=== PATIENT | male | born 1955 | race Caucasian/White ===

== ENCOUNTER 2021-02-08 11:32 | Inpatient (IN) | payer OTHER ==
[~2021-02-08] VITALS: Ht 175.3 cm; Wt 56.7 kg
[2021-02-08 11:33] VITALS: BP 105/76
[2021-02-08 12:01] LABS: ABSOLUTE NEUTROPHILS 7.6 thou/uL (1.4-8.2); BASOPHILS 0.2 % (0.0-2.0); EOSINOPHILS 0.1 % (0.0-3.0); HEMATOCRIT 52.2 % (42.0-52.0); HEMOGLOBIN 16.7 gm/dL (14.0-18.0); LYMPHOCYTES 5.8 % (24.0-44.0); MCV 93.8 fL (80.0-100.0); MONOCYTES 4.3 % (1.0-8.0); PLATELET COUNT 122 thou/uL (150-400); POLYS 89.6 % (36.0-66.0); RBC 5.56 mil/uL (4.50-6.00); RDW 17.2 % (10.5-14.5); WBC 8.4 thou/uL (4.0-11.0)
[2021-02-08 12:13] LABS: ANION GAP 2 mmol/L (7-16); BUN 32 mg/dL (7-18); CALCIUM 8.7 mg/dL (8.5-10.1); CHLORIDE 104 mmol/L (98-107); CO2 36 mmol/L (21-32); CREATININE 1.3 mg/dL (0.7-1.3); GLUCOSE 128 mg/dL (74-106); POTASSIUM 5.7 mmol/L (3.5-5.1); SODIUM 142 mmol/L (136-145)
[2021-02-08 12:23] LABS: ALBUMIN 2.7 g/dL (3.4-5.0); SGOT 30 U/L (15-37); SGPT 36 U/L (16-63); TOTAL BILIRUBIN 0.5 mg/dL (0.2-1.0); TROPONIN-I <0.06 ng/mL (<0.06)
--- NOTE | 2021-02-08 13:00 | NUR ---
Pt yelling at staff and refusing to ambulate with r/w in room pt stood without assistance and did give urine sample pt reports he is to swollen. Provider in room and talking with pt.
[2021-02-08 13:09] LABS: URINE BILIRUBIN NEGATIVE (Negative); URINE BLOOD NEGATIVE (Negative); URINE CLARITY CLEAR; URINE COLOR YELLOW; URINE GLUCOSE-RANDOM* NEGATIVE (Negative); URINE KETONES NEGATIVE (Negative); URINE LEUKOCYTES-REFLEX NEGATIVE (Negative); URINE NITRITE-REFLEX NEGATIVE (Negative); URINE PROTEIN (DIPSTICK) 2+ (Negative); URINE SPECIFIC GRAVITY 1.025 (1.005-1.035); URINE UROBILINOGEN 0.2 E.U./dl (0.2-1.0)
[2021-02-08 13:31] LABS: HYALINE CASTS >10 Many /LPF (None Seen)
[2021-02-08 13:32] LABS: SQUAMOUS 0-3 Few /LPF (0-3)
[2021-02-08 13:34] LABS: BACTERIA-REFLEX 1-9 Few /HPF (None Seen); CRYSTALS None Seen /LPF (None Seen); URINE RBC None Seen /HPF (0-2); URINE WBC-REFLEX 0-5 Rare /HPF (0-5)
[2021-02-08] MEDS ORDERED: ASA81BEC PO (14:30)
[2021-02-08] MEDS ORDERED: PROAIR HFA8.5 GM INH (14:30)
[2021-02-08] MEDS ORDERED: LIPITOR40 MG PO (14:31)
[2021-02-08] MEDS ORDERED: DILTIAZEM ER120 MG PO (14:31)
[2021-02-08] MEDS ORDERED: VIBRAMYCIN 100100 M2 PO (14:31)
[2021-02-08] MEDS ORDERED: FUROSEMIDE 40 M40 MG PO (14:32)
[2021-02-08] MEDS ORDERED: PREDNISONE 10 M10 MG PO (14:32)
[2021-02-08 15:07] VITALS: BP 91/62
--- NOTE | 2021-02-08 15:14 | EKG ---
[address] [place] [address] ELECTROCARDIOGRAM REPORT Name: COLIN HYDE Room #: 170-7 ADM IN M.R.#: [id number] Admission: 02/08/21 Attend Phys: Camacho Cm MD Discharge: Date of : 53 Report #: [id number] [facility] ED Test Date: 2021-02-08 Test Time: 11:57:14 Pat Name: COLIN HYDE Department: Room: 170 Gender: M Oak Tanner: KFLAGG : 1955 Requested By: Adrian Pagan Order Number: [id number] MD: Quincy Fontana Measurements Intervals [place] Rate: 102 P: 88 GA: 128 QRS: 164 QRSD: 143 T: 41 QT: 350 QTc: 456 Interpretive Statements Sinus tachycardia Right bundle branch block Abnormal lateral Q waves Anterior infarct, age indeterminate No previous ECG available for comparison Electronically Signed On 02-08-2021 15:14:10 CDT by Quincy Fontana [email or web address] <ELECTRONICALLY SIGNED> By: Quincy Fontana MD, [facility] 02/08/21 1514 1157 1157 Quincy Fontana MD, FACC /EPI
[2021-02-08 15:20] VITALS: BP 88/66
[2021-02-08 15:26] LABS: CHOLESTEROL 131 mg/dL (<200); HDL CHOLESTEROL 54 mg/dL (>40); LDL CHOLESTEROL 57 mg/dL (<100); TC:HDL 2.4 Ratio (Not establshd); TRIGLYCERIDE 102 mg/dL (<150); VLDL 20 mg/dL (<40)
[2021-02-08 15:52] LABS: FOLIC ACID 19.3 ng/mL (8.6-58.9)
[2021-02-08 16:17] LABS: AMP/METHAMP Negative (Negative); BARBITURATES Negative (Negative); BENZODIAZEPINES Negative (Negative); COCAINE Negative (Negative); METHADONE Negative (Negative); OPIATES Negative (Negative); PCP Negative (Negative)
[2021-02-08 19:36] VITALS: BP 117/89
--- NOTE | 2021-02-08 19:39 | NUR ---
RECEIVED PT AROUND 1530 TODAY FROM ER TO ROOM 364. PT ADMITTED AND ASSESSMENTS COMPLETE. PT IS MED-SURG. OXYGEN SATURATION IN LOW TO MID 80'S ON 2L, HIGH 80'S ON 3L, SO PT IS ON 4L NC AT THIS TIME. FALL CONTRACT AND IMM FORM SIGNED. REPORT GIVEN TO MALINI ERAZO ON TRANSFER MAN AT SHIFT CHANGE.
--- NOTE | 2021-02-09 00:21 | NUR ---
PT COVID PCR CAME BACK NEGATIVE. ALL APPROPRIATE PARTIES NOTIFIED. PT IS POOR HISTORIAN, BUT PREVIOUS ER VISIT [facility]. WILL CONTINUE TO MONITOR.
[2021-02-09 03:08] VITALS: BP 147/107
[2021-02-09 05:07] LABS: HEMOGLOBIN 14.9 gm/dL (14.0-18.0); MCH 29.1 pg (26.0-34.0); MCHC 31.7 g/dL (28.0-37.0); MCV 91.9 fL (80.0-100.0); RBC 5.11 mil/uL (4.50-6.00); RDW 15.8 % (10.5-14.5); WBC 5.4 thou/uL (4.0-11.0)
[2021-02-09 05:41] LABS: CALCIUM 8.2 mg/dL (8.5-10.1); CREATININE 1.2 mg/dL (0.7-1.3); POTASSIUM 5.8 mmol/L (3.5-5.1)
[2021-02-09 08:08] VITALS: BP 113/73
--- NOTE | 2021-02-09 11:33 | NUR ---
met with patient. He recently discharged from [facility] and too weak to get out of cab. Patient reports he lives alone in apt. No elevator access. uses rolator walker which is in his room. [facility]. He does not drive and uses a cab for transport. Patient does not have oxygen at home but currently on oxygen. Patient reports he will work with therapy to assist with dc planning. patient reports lives alone and appears limited family support.
--- NOTE | 2021-02-09 11:59 | 2DMMODE ---
[facility] [place] [address] 2 D/M-MODE ECHOCARDIOGRAM Name: COLIN HYDE Room #: 364-P ADM IN M.R.#: [id number] Admission: 02/08/21 Attend Phys: Camacho Cm MD Discharge: Date of : 53 Report #: [id number] THIS REPORT FOR: cc: FAM - Family physician unknown FAM - Family physician unknown Rodney Rivers MD [facility] ~ APPROVED REPORT Study performed: 02/09/2021 10:33:53 EXAM: Comprehensive 2D, Doppler, and color-flow Echocardiogram Patient Location: Bedside Room #: 364 Status: routine BSA: 1.76 HR: 95 bpm BP: 133/73 mmHg Rhythm: NSR Other Information Study Quality: Adequate Indications Short of breath, Elevated BNP, cardiomegaly, rule out CHF. Hx: COPD, CHF. 2D Dimensions RVDd: 44.33 mm IVSd: 10.72 (7-11mm) LVOT Diam: 19.42 (18-24mm) LVDd: 38.84 mm PWd: 9.58 (7-11mm) LVDs: 28.09 (25-40mm) Left Atrium: 38.06 (27-40mm) Aortic Root: 33.62 mm Volumes Left Atrial Volume (Systole) Single Plane 4CH: 41.39 mL Single Plane 2CH: 32.09 mL LA ESV Index: 22.00 mL/m2 Aortic Valve AoV Peak Kevan.: 1.16 m/s AO Peak Gr.: 5.42 mmHg LVOT Max P.81 mmHg LVOT Max V: 0.98 m/s [facility] [address] [place] [address] 2 D/M-MODE ECHOCARDIOGRAM Name: COLIN HYDE Room #: 364-P [facility]#: [id number] Admission: 02/08/21 Attend Phys: Camacho Cm MD Discharge: Date of : 53 Report #: [id number] CK Vmax: 2.48 cm2 Mitral Valve E/A Ratio: 0.8 MV Decel. Time: 57.44 ms MV E Max Kevan.: 0.73 m/s MV A Kevan.: 0.93 m/s MV PHT: 16.66 ms IVRT: 93.43 ms Pulmonary Valve PV Peak Kevan.: 0.84 m/s PV Peak Gr.: 2.84 mmHg Pulmonary Vein P Vein S: 0.72 m/s P Vein A: 0.30 m/s P Vein D: 0.65 m/s P Vein A Dur.: 93.4 msec P Vein S/D Ratio: 1.11 Tricuspid Valve TR Peak Kevan.: 3.76 m/s RAP Estimate: 15.00 mmHg TR Peak Gr.: 56.45 mmHg PA Pressure: 71.00 mmHg Left Ventricle The left ventricle is normal size. Paradoxical septal motion consistent with right ventricular pressure overload. There is normal left ventricular wall thickness. Left ventricular systolic function is normal. LVEF is 50-55%. Mild diastolic dysfunction is present (impaired relaxation pattern). Right Ventricle Right ventricle is severely dilated. Right ventricle is moderately hypokinetic. Atria The left atrium size is normal. Right atrium is moderately dilated. Aortic Valve The aortic valve is normal in structure; mildly thickened and calcified. No aortic regurgitation is present. There is no aortic valvular stenosis. Mitral Valve The mitral valve is normal in structure. Mild mitral annular calcification. There is no mitral valve regurgitation noted. No [facility] [address] [place] [address] 2 D/M-MODE ECHOCARDIOGRAM Name: COLIN HYDE Room #: 364-P ADM IN ..#: [id number] Admission: 02/08/21 Attend Phys: Camacho Cm MD Discharge: Date of : 53 Report #: [id number] evidence of mitral valve stenosis. Tricuspid Valve The tricuspid valve is normal in structure. Moderate tricuspid regurgitation. Estimated PAP is 70mmHG. Pulmonic Valve The pulmonary valve is normal in structure. There is no pulmonic valvular regurgitation. Great Vessels The aortic root is normal in size. Ascending aorta is not well visualized. IVC is dilated and collapses <50% with inspiration. Pericardium Small pericardial effusion. <Conclusion> Normal left ventricular size/wall thickness Ejection fraction 60% Grade 1 diastolic dysfunction Right ventricle severely dilated/hypokinetic Right atrium moderately dilated Color-flow Doppler study was performed of the aortic/mitral/tricuspid/pulmonary valve Aortic valve minimally calcified, no stenosis Mild mitral annular calcification Moderate tricuspid valve insufficiency Severe pulmonary hypertension, PA pressure systolic estimated 70 mmHg No pericardial effusion Normal aortic root size. <ELECTRONICALLY SIGNED> By: Rodney Rivers MD, FACC 02/09/21 1158 1158 1158 Rodney Rivers MD, FACC /INF
[2021-02-09 15:14] VITALS: BP 96/78
--- NOTE | 2021-02-09 15:49 | NUR ---
ASSUMED PT CARE AT SHIFT CHANGE, PT ALERT TO SELF, NEEDS FREQUENT REMINDERS OF LOCATION/SITUATION. PT IS COMFORTED BY HIS BELONGINGS BEING IN THE BED WITH HIM. PT STEADY ON FEET. NEEDS FREQUENT REMINDERS TO KEEP OXYGEN ON. WHEN PT STANDS UP, A LARGE MASS IS NOTICEABLE ON HIS RIGHT FLANK/SIDE OF ABDOMEN. DR MCCALL NOTIFIED. PT UNABLE TO STATE WHAT THE MASS IS.
--- NOTE | 2021-02-09 17:33 | NUR ---
PT REFUSED TO GO WITH TRANSPORT TO CT. STATED HE "IS EATING AND I NEED TO DIGEST PROPERLY, I AM NOT GOING ANYWHERE" PT WAS 95% COMPLETE WITH DINNER MEAL AT THE TIME. INFORMED TRANSPORT THAT PT REFUSED AT THIS TIME.
[2021-02-09 20:03] VITALS: BP 103/84
[2021-02-10 05:16] LABS: CALCIUM 7.9 mg/dL (8.5-10.1); POTASSIUM 5.1 mmol/L (3.5-5.1)
--- NOTE | 2021-02-10 06:09 | NUR ---
PT IS A/0X4 AT SOME POINTS DURING SHIFT, THEN HAS SOME MAJOR CONFUSION AND MAKES NO SENSE. PT REQUESTED PAIN MEDICATION X1, WENT TO ADMINISTER PO HYDRO PAIN DID NOT WANT MEDICATION AND MEDICATION WAS WASTED IN PIXIS. AM LABS SHOW K+ DOWN TO 5.1. O2 SATURATION IS DEPENDENT ON PT KEEPING NASAL CANNULA ON HE TAKES IT OFF MULTIPLE TIMES OVERNIGHT.
[2021-02-10 07:14] VITALS: BP 125/93
--- NOTE | 2021-02-10 09:36 | NUR ---
Note Given: Y Facility List Provided:Y Facility Ace: None chosen at this time Yenni Kebede NP discussed BPCI with this pt 02/10/2021
--- NOTE | 2021-02-10 14:05 | NUR ---
SW reviewed chart and spoke with nursing and attending physician. Pt is slowly progressing towards goals for discharge. Pt remains on 4L of O2. CT abdomen was ordered this morning. 5N consult ordered. Pt does not meet admission criteria for 5N. SW met with pt at bedside to discuss discharge plan. SW provided pt with list of SNFs for review. SW explained services provided at SNF. SW also discussed home health services with pt. Pt was not on O2 prior to admission. Pt to review list and notify SW of preference of facility. SW is following to assist as needed with discharge planning.
[2021-02-10 17:26] VITALS: BP 120/86
--- NOTE | 2021-02-10 18:29 | NUR ---
ASSUMED PT CARE AT SHIFT CHANGE, PT VARIED MOOD BETWEEN PLEASANT AND IRRITATED. PT WAS COMPLIANT WITH CT SCAN. PT IS ALERT TO SELF AND IS CONFUSED/FORGETFUL ON POC. PT IS STABLE ON HIS FEET TO USE URINAL. PT REFUSED HOSPITAL GOWN AND IS EASILY PLEASED WITH REQUESTED SNACKS AND WARM BLANKETS.
[2021-02-10 20:01] VITALS: BP 90/66
--- NOTE | 2021-02-11 00:29 | NUR ---
PT SLEEPING. PT ANSWERED QUESTIONS BUT DID NOT OPEN EYES. HISTORY OF ORIENTATION TO SELF AND SITUATION. 02 PER NC.
[2021-02-11 04:06] VITALS: BP 122/94
[2021-02-11 04:29] LABS: CALCIUM 7.7 mg/dL (8.5-10.1); CREATININE 0.7 mg/dL (0.7-1.3); POTASSIUM 4.5 mmol/L (3.5-5.1)
[2021-02-11 08:14] VITALS: BP 136/98
[2021-02-11 09:30] VITALS: BP 101/72
[2021-02-11 16:44] VITALS: BP 109/72
[2021-02-11 18:59] VITALS: BP 101/72
--- NOTE | 2021-02-11 19:06 | NUR ---
RN ASSUMED PT'S CARE AT 0700AM, PT IS A&OX2 ( PERSON AND PLACE), PT IS ON O2 3L/MIN/NC, PT'S VS ARE STABLE, BUT PT HAS SOB WITH ACTIVITIES, PT DENIES PAIN AT THIS TIME.
--- NOTE | 2021-02-11 20:34 | NUR ---
PT WATCHING TV IN BED IN THE DARK. BED SHEETS IN A BALL. PT HAS ITEMS LINED UP IN HIS BED ON HIS R AND L. O2 PER NC. PT REQUESTED FOOD AND COFFEE AND PROVIDED. R SIDE FLANK REMAINS WITH EDEMA. DUSKY SKIN TONE.
[2021-02-12 05:09] VITALS: BP 103/72
[2021-02-12 07:35] VITALS: BP 126/89
[2021-02-12 09:00] VITALS: BP 126/89
--- NOTE | 2021-02-12 14:02 | NUR ---
RN ASSUMED PT'S CARE AT 0700AM, PT IS A&OX2 ( PERSON AND PLACE), PT IS CONFUSED AT TIME, PT IS O2 4L/MIN/NC, PT STILL HAS SOB WITH ACTIVITIES, PT'S VS ARE STABLE, PT DENIES PAIN AT THIS TIME.
[2021-02-12 15:22] VITALS: BP 111/73
[2021-02-12 19:37] VITALS: BP 110/76
[2021-02-13 04:31] VITALS: BP 100/72
--- NOTE | 2021-02-13 05:46 | NUR ---
Pt. slept fair during the night. O2 at 4L/NC with O2 sat in the low to mid 90's. Occasional loose cough. Voiding per urinal. Bed alarm for safety , pt. impulsive.
[2021-02-13 05:59] LABS: ANION GAP < 0 mmol/L (7-16); BUN 18 mg/dL (7-18); CALCIUM 7.7 mg/dL (8.5-10.1); CHLORIDE 101 mmol/L (98-107); CO2 43 mmol/L (21-32); CREATININE 0.7 mg/dL (0.7-1.3); GLUCOSE 95 mg/dL (74-106); SODIUM 140 mmol/L (136-145)
[2021-02-13 07:08] VITALS: BP 114/81
[2021-02-13 09:30] VITALS: BP 95/66
--- NOTE | 2021-02-13 13:31 | NUR ---
SW reviewed chart and spoke with nursing and attending physician. Pt is progressing towards goals for discharge. Recommendation made for pt to go to SNF. Pt is on 3L of O2 and IV lasix. TINA met with pt at bedside. Reviewed SNF list with pt. Pt requests SNF referral to be sent to [facility] due to location. Pt asking when he will be discharged. SW explained possibly later today or tomorrow pending acceptance and bed availability at [facility]. Pt verbalized understanding. TINA faxed SNF referral to [facility] and notified Socorro in admissions of new referral. Awaiting input from facility at this time. TINA is following to assist as needed with discharge planning.
[2021-02-13 16:40] VITALS: BP 95/66
--- NOTE | 2021-02-13 16:44 | NUR ---
RN ASSUMED PT'S CARE AT 0700AM, PT KNOWS HIS NAME AND DAY, PT IS CONFUSED AT TIME, PT CAN FOLLOW COMMANDS, PT'S O2 HAS REDUCED TO 3L/MIN/NC FROM O2 4L/MIN/NC, PT'S VS ARE STABLE BY THIS TIME, PT'S DC PLAN IS GOING TO SNF .PT DENIES PAIN AT THIS TIME.
[2021-02-13 20:25] VITALS: BP 104/75
[2021-02-14 04:22] VITALS: BP 104/74
--- NOTE | 2021-02-14 04:34 | NUR ---
Pt. slept well most of the night. Likes to eat cream when awake. Remains confused and forgetful. O2 sat in the mid to upper 90's on 2L/NC. Bed alarm on, pt. impulsive. Voiding per urinal. Making some progress towards care plan goals.
--- NOTE | 2021-02-14 05:15 | NUR ---
Pt. is more oriented this am and answered orientation questions.
--- NOTE | 2021-02-14 06:15 | NUR ---
Pt. c/o being short of breath this am. O2 sat 93% in RA. She stated it is hard to tell if it is her anxiety causing it or something else. Verbalized she's taking anxiety med (lexapro) half of what was prescribed because it's making her sleepy and dazed. She stopped taking it because of that reason just prior to being admitted here. Encouraged to call staff if she continues to experience shortness of breath.
[2021-02-14 07:39] VITALS: BP 150/24
--- NOTE | 2021-02-14 08:16 | NUR ---
BPCI ADVANCED PLACED WITHIN CHART FOR PATIENT TO READ OR FOR THE FAMILY AND CAREGIVER TO READ TO PATIENT.
[2021-02-14 10:55] VITALS: BP 150/24
--- NOTE | 2021-02-14 11:01 | NUR ---
DISCHARGE NOTE: TINA reviewed chart and spoke with nursing and attending physician. Pt is medically stable for discharge. TINA was notified by Socorro in admissions at [facility] that they are not able to accept pt. TINA met with pt at bedside to provide update and discuss alternate SNF options. Pt states he wants to discharge and have HH services. Pt was not on O2 prior to admission. Pt states he goes to the [facility] [facility]. Pt states he sees Corrina Fernandes NP for primary care. TINA discussed options for HH services with pt. No preference voiced. TINA discussed with attending physician, who states pt has capacity to make his medical decisions and states pt is able to discharge home with HH services. Rest/exercise oximetry requested to determine if pt needs home O2. TINA faxed HH referral to [facility] for review. Notified liaison of new referral. [facility] is able to assist pt with obtaining additional services through the [place] if needed. Awaiting finalized discharge orders/summary at this time and rest/exercise oximetry results. TINA is following to assist as needed with discharge.
[2021-02-14] MEDS ORDERED: OXYGEN MISCELL (15:22)
--- NOTE | 2021-02-14 17:56 | NUR ---
ASSUMED PATIENT CARE AT 0700. ALERT TO SELF. TOLERATED ON 3L/NC. NO DISTRESS NOTED. PATIENT REFUSED DC TO HOME. NAIN MOROCHO AND ROSARIO CAME TALK TO PATIENT THAT HE IS AGREEBLE GO HOME WITH HH AT 1730.
--- NOTE | 2021-02-20 12:53 | HC ---
[facility] [place] [address] CONSULTATION Name: COLIN HYDE Room #: 364-P [facility] IN M.R.#: [id number] Admission: 02/08/21 Attend Phys: Camacho Cm MD Discharge: 02/14/21 Date of : 53 Report #: [id number] THIS REPORT FOR: cc: FAM - Family physician unknown FAM - Family physician unknown Eron Mace MD ~ DATE OF SERVICE: 02/10/2021 HISTORY OF PRESENT ILLNESS: The patient is a 65-year-old white male who was recently discharged from [facility], had a cab to his house, but he could not get out of the cab. The metal cabinet finisher called 911. He did not want to return back to [facility] and was admitted to [facility]. He is noted to have a CHF exacerbation, elevated BNP, COPD exacerbation, hyperkalemia. He was seen by Pulmonary Medicine and diagnosed with acute hypoxic respiratory failure. He is needing nasal prong O2, currently 4 liters at rest and needs up to 6 liters with gait. He has right flank mass, question lipoma. We are seeing him in rehabilitation medicine consultation. PAST MEDICAL HISTORY: Prior medical history includes COPD, CHF, question of cerebrovascular accident. HABITS: Current every day smoker. No history of alcohol abuse. MEDICATIONS: Please see the full medication listing. ALLERGIES: SULFA. SOCIAL HISTORY: Lives alone in an apartment, no steps, on one floor. Premorbid cane ambulator. He was not on any oxygen at home. He takes a cab back and forth to the store for groceries. He does not have any family support. When I asked him about a friend, which was noted in the case management notes, he referred back to the metal cabinet finisher. REVIEW OF SYSTEMS: No current complaints of chest pain, shortness of breath or abdominal discomfort. Notes he has a history of heartburn. PHYSICAL EXAMINATION: GENERAL: He is a very thin rather cachectic 65-year-old white male, in no obvious distress. He is a limited historian. VITAL SIGNS: Temperature is 98.8, pulse 86, respirations 18, blood pressure 125/93. He is on 4 liters nasal cannula. HEENT: Facies are symmetric. EXTREMITIES: He has functional range of motion of both upper extremities. Strength is grade 4-/5. DTRs are trace to 1. Lower extremities, no focal calf swelling, functional range of motion, strength is grade 4-/5. He was min assist [facility] [address] [place] [address] CONSULTATION Name: COLIN HYDE Room #: 364-P DIS IN [facility].#: [id number] Admission: 02/08/21 Attend Phys: Camacho mC MD Discharge: 02/14/21 Date of : 53 Report #: [id number] sit to stand. Gait was 50 feet min assist with a front-wheeled walker. He does need up to 6 liters with gait. ASSESSMENT: A 65-year-old white male with the following problem list: 1. Generalized weakness and debilitation. 2. Congestive heart failure exacerbation. 3. Chronic obstructive pulmonary disease without acute exacerbation. 4. Acute on chronic heart failure. 5. Acute renal insufficiency. 6. Limited social support. 7. Limited historian. PLAN: I do not see that the patient would meet criteria for an acute 5 North inpatient rehabilitation stay. We would recommend a shelter facility stay as he is on significant oxygen and has very marginal home support and it is uncertain if he will be able to return back to his prior living situation. We would recommend a skilled facility stay as the most practical for this patient. Thank you for asking us to assist in this patient's care. <ELECTRONICALLY SIGNED> By: Eron Mace MD 02/20/21 1253 1142 2307 Eron Mace MD /[facility]
== END 2021-02-14 18:00 | disposition home health service (06) | DRG 291 ==
LOC: ER 11:32 → EROBS 13:45 → 3W 13:45
PROVIDERS: Emergency Medicine; ADMIT Hospitalist; ATTEND Hospitalist
DX: I11.0 Hypertensive heart disease with heart failure (principal); J96.01 Acute respiratory failure with hypoxia; E43 Unspecified severe protein-calorie malnutrition; N17.9 Acute kidney failure, unspecified; Z68.1 Body mass index [BMI] 19.9 or less, adult; J44.0 Chronic obstructive pulmonary disease with (acute) lower respiratory infection; I50.33 Acute on chronic diastolic (congestive) heart failure; Z20.822 Contact with and (suspected) exposure to COVID-19; R53.81 Other malaise; F17.210 Nicotine dependence, cigarettes, uncomplicated; E87.5 Hyperkalemia; Z60.2 Problems related to living alone; E78.5 Hyperlipidemia, unspecified; I27.29 Other secondary pulmonary hypertension; Z79.82 Long term (current) use of aspirin; Z79.52 Long term (current) use of systemic steroids; Z88.2 Allergy status to sulfonamides; Z79.899 Other long term (current) drug therapy
CPT/HCPCS: 10080

== ENCOUNTER 2021-03-01 14:39 | Inpatient (IN) | payer OTHER ==
[~2021-03-01] VITALS: Ht 172.7 cm; Wt 57.5 kg
--- NOTE | ~2021-03-01 | EMS ---
[address] [address] EMS Patient Care Report Name: COLIN HYDE Room #: REG AKASH Cazares#: [id number] Admission: 03/01/21 Attend Phys: Discharge: Date of : 53 Report #: [id number] THIS REPORT FOR: //name// Report Transmitted: 03/01/2021 15:56 EMS Care Summary [place], [place]/[facility] Incident [id number] @ 03/01/2021 14:04 Incident Location [address] [place] [address] Patient COLIN HYDE Male, 65 Years 1955 Patient Address [address] [place] [address] Patient History Congestive Heart Failure (CHF),Hypertension (HTN),Myocardial Infarction (AK), Patient Allergies Sulfur allergy, Patient Medications Other, Nitroglycerin, Chief Complaint BLOOD IN STOOL Disposition Transported No Lights/[place] Dispatch Reason Hemorrhage/Laceration Transported To [facility] Narrative M36 DISPATCHED ON A HEMORRHAGE. M36 ARRIVED TO APARTMENT TO FIND P41 AT PT SIDE INSIDE OF HOME. PT STANDING IN LIVING ROOM SPEAKING WITH P41. PT STATED BLOOD [address] [address] EMS Patient Care Report Name: COLIN HYDE Room #: REG AKASH Cazares#: [id number] Admission: 03/01/21 Attend Phys: Discharge: Date of : 53 Report #: [id number] IN STOOL CHIEF COMPLAINT. PT STATED BLOOD IN STOOL RED AND DARK BROWN. PT STATED BLOOD IN STOOL STARTED ONE MONTH AGO. PT STATED ADDITIONAL COMPLAINT OF RIGHT HAND SKIN TEAR. PT STATED HE "BUMPED IT INTO THE CORNER OF THE WALL." PT STATED HE "WAS ADMITTED TO THE HOSPITAL IN JANUARY FOR FLUID BUILD UP." PT RIGHT HAND FOUND TO BE OOZING BLOOD FROM SKIN TEAR. PT HAND BANDAGED. PT ASSISTED TO WALK OUT OF APARTMENT TO STRETCHER. PT SECURED WITH SEATBELTS. PT LEFT ARM FOUND TO HAVE GAUZE TAPED TO IT. PT STATED [place] WAS FROM STAY IN HOSPITAL IN JANUARY. PT STATED "ABOUT TWO WEEKS AGO" HE WAS DISCHARGED. PT VS MONITORED EN ROUTE. PT REPORT GIVEN. PT TRANSFERRED SELF TO HOSPITAL BED BY SCOOTING. PT CARE AND BELONGINGS TRANSFERRED TO ER STAFF AT [facility] WITHOUT INCIDENT. M36 PLACED BACK IN SERVICE. PT FRONT DOOR ONLY OPENED PARTIALLY BECAUSE BLOCKED BY FURNITURE. PT ENTRYWAY FULL OF TRASH BAGS AND REFUSE. PT REPORTED TO [facility] VIA ONLINE FORM AT 1511 ON 03/01/2021. Initial Vitals @14:24P: 94,R: 16,BP: 158/116,Pain: 4/10,GCS: 15,SpO2: 95,Revised Trauma: 12, @14:21P: 104,R: 18,BP: 160/124,Pain: 4/10,GCS: 15,CO: 0,SpO2: 89,Revised Trauma: 12, Assessments @14:24MENTAL:Person Oriented,Time Oriented,Event Oriented,Place Oriented,SKIN:HEENT:LUNG SOUNDS:General: Diarrhea,ABDOMEN:General: Diarrhea,PELVIS//GI:Incontinence,EXTREMITIES:Right Arm: Other,PULSE:Radial: 2+ Normal,NEURO:Other, Impression Gastrointestinal hemorrhage Procedures @14:28ALS AssessmentResponse: UnchangedSucceeded@14:28Oxygen FlowRate: 4 Device: Nasal Cannula (NC) Response: ImprovedSucceeded@14:29BandagingResponse: UnchangedSucceeded Timeline 14:02,Call Received 14:02,Dispatch Notified 14:04,Dispatched 14:05,En Route 14:13,On Scene 14:14,At Patient 14:21,BP: 160/124 M,PULSE: 104,RR: 18 R,SPO2: 89 Ox,ETCO2: ,BG: ,PAIN: 4,GCS: 15, 14:24,BP: 158/116 M,PULSE: 94,RR: 16 R,SPO2: 95 Ox,ETCO2: ,BG: ,PAIN: 4,GCS: [address] [address] EMS Patient Care Report Name: COLIN HYDE Room #: REG AKASH Cazares#: [id number] Admission: 03/01/21 Attend Phys: Discharge: Date of : 53 Report #: [id number] 15, 14:24,Depart Scene 14:28,ALS Assessment,Response: UnchangedSucceeded, 14:28,Oxygen FlowRate: 4 Device: Nasal Cannula (NC) Response: ImprovedSucceeded, 14:29,Bandaging,Response: UnchangedSucceeded, 14:35,At Destination 14:50,Call Closed Disclaimer v1.1 Copyright 2020 [employer] This EMS Care Summary contains data elements from the applicable legal record (which may be displayed differently). It is designed to provide pertinent information for the following purposes: continuity of care, clinical quality, and state data reporting. The complete legal record is available to ED staff and administrators of the receiving hospital in [employer] Patient Tracker. All data is provided "as is."
[~2021-03-01 14:39] MED LIST: ASA81BEC PO; DILTIAZEM ER120 MG PO; FUROSEMIDE 40 M40 MG PO; LIPITOR40 MG PO; OXYGEN MISCELL; PREDNISONE 10 M10 MG PO; PROAIR HFA8.5 GM INH; VIBRAMYCIN 100100 M2 PO
[2021-03-01 14:40] VITALS: BP 154/106
[2021-03-01 15:16] LABS: ABSOLUTE NEUTROPHILS 5.5 thou/uL (1.4-8.2); BASOPHILS 0.5 % (0.0-2.0); EOSINOPHILS 0.8 % (0.0-3.0); HEMATOCRIT 51.1 % (42.0-52.0); HEMOGLOBIN 16.2 gm/dL (14.0-18.0); LYMPHOCYTES 14.2 % (24.0-44.0); MCH 29.4 pg (26.0-34.0); MCHC 31.8 g/dL (28.0-37.0); MCV 92.6 fL (80.0-100.0); MONOCYTES 7.9 % (1.0-8.0); PLATELET COUNT 255 thou/uL (150-400); POLYS 76.6 % (36.0-66.0); RBC 5.52 mil/uL (4.50-6.00); RDW 17.6 % (10.5-14.5); WBC 7.1 thou/uL (4.0-11.0)
[2021-03-01 15:20] LABS: CALCIUM 8.4 mg/dL (8.5-10.1); CREATININE 0.9 mg/dL (0.7-1.3); POTASSIUM 4.2 mmol/L (3.5-5.1)
[2021-03-01 15:24] LABS: ALBUMIN 2.9 g/dL (3.4-5.0); TOTAL BILIRUBIN 0.4 mg/dL (0.2-1.0); TOTAL PROTEIN 6.2 g/dL (6.4-8.2)
--- NOTE | 2021-03-01 16:45 | EKG ---
[address] [address] ELECTROCARDIOGRAM REPORT Name: COLIN HYDE Room #: REG AKASH Cazares#: [id number] Admission: 03/01/21 Attend Phys: Discharge: Date of : 53 Report #: [id number] [facility] ED Test Date: 2021-03-01 Test Time: 15:35:05 Pat Name: COLIN HYDE Department: Room: Gender: M Supervisor [employer]: ANURAG : 1955 Requested By: Anastacio Dowling Order Number: [id number] MD: Rodney Rivers Measurements Intervals [place] Rate: 85 P: 103 VA: 134 QRS: 187 QRSD: 140 T: QT: 405 QTc: 482 Interpretive Statements Sinus rhythm Atrial premature complex Nonspecific intraventricular conduction delay Abnormal lateral Q waves Anterior infarct, age indeterminate Compared to ECG 02/08/2021 11:57:14 Atrial premature complex(es) now present Intraventricular conduction delay now present Sinus tachycardia no longer present Right bundle-branch block no longer present Myocardial infarct finding still present Electronically Signed On 03-01-2021 16:45:42 CDT by Rodney Rivers [email or web address] <ELECTRONICALLY SIGNED> By: Rodney Rivers MD, [facility] 03/01/21 1645 1535 1535 Rodney Rivers MD, [facility] /EPI
[2021-03-01 16:59] LABS: URINE BILIRUBIN 1+ (Negative); URINE BLOOD NEGATIVE (Negative); URINE CLARITY CLEAR; URINE COLOR YELLOW; URINE GLUCOSE-RANDOM* NEGATIVE (Negative); URINE KETONES NEGATIVE (Negative); URINE LEUKOCYTES-REFLEX NEGATIVE (Negative); URINE NITRITE-REFLEX NEGATIVE (Negative); URINE PROTEIN (DIPSTICK) 2+ (Negative); URINE SPECIFIC GRAVITY >= 1.030 (1.005-1.035)
[2021-03-01 17:01] LABS: ICTOTEST (BILI CONFIRMATORY) Positive (Negative)
[2021-03-01 17:10] LABS: MUCUS >6 Heavy strn/LPF (None Seen)
[2021-03-01 17:11] LABS: BACTERIA-REFLEX 1-9 Few /HPF (None Seen); CASTS None Seen /LPF (None Seen); CRYSTALS None Seen /LPF (None Seen); SQUAMOUS 0-3 Few /LPF (0-3); URINE RBC None Seen /HPF (NONE SEEN)
[2021-03-01 17:12] LABS: URINE WBC-REFLEX 0-5 Rare /HPF (0-5)
[2021-03-01 19:40] VITALS: BP 141/103
[2021-03-01 20:01] VITALS: BP 127/96
[2021-03-01 20:20] VITALS: BP 155/99
[2021-03-01 21:39] LABS: BE(vivo) 5.7 mmol/L (-2 to +3); HCO3 35.5 mmol/L (22.0-26.0); PCO2 76.9 mmHg (35.0-45.0); PO2 100.2 mmHg (80.0-100.0); sO2 96.6 % (92.0-98.0)
[2021-03-01 21:40] LABS: pH 7.282 (7.360-7.450)
[2021-03-02 00:09] VITALS: BP 105/80
--- NOTE | 2021-03-02 04:07 | NUR ---
ASSUME CARE 2030. PT/VITALSX STABLE. DENIES ANY PAIN. MODERATE TOLERANCE TO ACTIVITY. SOB NOTED WITH REST/EXERTION. CRITICAL ABGs NOTED WITH BIPAP ORDERED FOR PT. TOLERATING OK. ASSESSMENT CHARTED. PROGRESSING WELL WITH POC. PLAN IS TO CONTINUE TO DIURESE PT FOR CHF/ABX FOR COPD EXACERBATION. SR NOTED ON MONITOR. WILL CONTINUE TO MONITTOPR AND FOLLOW WITH POC
[2021-03-02 05:22] LABS: HEMATOCRIT 45.7 % (42.0-52.0); HEMOGLOBIN 14.3 gm/dL (14.0-18.0); MCH 29.1 pg (26.0-34.0); MCHC 31.2 g/dL (28.0-37.0); MCV 93.5 fL (80.0-100.0); RBC 4.89 mil/uL (4.50-6.00); RDW 16.7 % (10.5-14.5); WBC 5.9 thou/uL (4.0-11.0)
[2021-03-02 05:25] VITALS: BP 107/82
[2021-03-02 05:41] LABS: ALBUMIN 2.5 g/dL (3.4-5.0); CREATININE 0.9 mg/dL (0.7-1.3); POTASSIUM 3.8 mmol/L (3.5-5.1); TOTAL BILIRUBIN 0.5 mg/dL (0.2-1.0); TOTAL PROTEIN 5.2 g/dL (6.4-8.2)
[2021-03-02 07:29] VITALS: BP 114/87
[2021-03-02 09:57] LABS: BE(vivo) 7.3 mmol/L (-2 to +3); HCO3 36.1 mmol/L (22.0-26.0); PCO2 69.4 mmHg (35.0-45.0); PO2 80.5 mmHg (80.0-100.0); pH 7.334 (7.360-7.450); sO2 94.8 % (92.0-98.0)
[2021-03-02 11:00] VITALS: BP 132/92
--- NOTE | 2021-03-02 12:40 | NUR ---
Case opened to follow for dc planning. Pt is known to cm from a recent admission and dc home on 02-14-21. He declined snf stay at [facility] and elected to go home with o2 per [facility] and [facility] services. He is being treated for exac CHF/respiratory failure. Pt had critical abgs this am and has order for bipap as needed. Pt on BPCI program. SNF stay recommended by the attending. Pt has been interested in [facility]. Will send referral to shar in admisssion and see if they have any beds available if needed.
[2021-03-02 15:39] VITALS: BP 103/74
[2021-03-02 19:24] VITALS: BP 111/81
[2021-03-03 03:50] VITALS: BP 108/76
[2021-03-03 03:51] LABS: HEMATOCRIT 45.4 % (42.0-52.0); HEMOGLOBIN 14.3 gm/dL (14.0-18.0); MCH 29.3 pg (26.0-34.0); MCHC 31.5 g/dL (28.0-37.0); RBC 4.88 mil/uL (4.50-6.00); RDW 17.4 % (10.5-14.5); WBC 6.2 thou/uL (4.0-11.0)
[2021-03-03 04:00] LABS: CALCIUM 7.8 mg/dL (8.5-10.1); CREATININE 1.1 mg/dL (0.7-1.3); POTASSIUM 4.8 mmol/L (3.5-5.1)
--- NOTE | 2021-03-03 04:01 | NUR ---
ASSUME CARE 1900. PT/VITALS STABLE. DENIES ANY PAIN. MODERATE TOLERANCE TO ACTIVITY. SR/BBB ON MONITOR. DENIES BIPAP AT NIGHT. ON 3L MC TOLERATING WELL. ASSESSMENT CHARTED. PROGRESSING WELL WITH POC. PLAN IS TO CONTINUE TO DIURESE PT, WELL CONTINUE STEROIDS FOR COPD EXACERBATION. WILL CONTINUE TO MONITOR AND FOLLOW WITH POC
[2021-03-03 08:51] VITALS: BP 108/70
--- NOTE | 2021-03-03 09:42 | NUR ---
BPCI letter provided to patient, provided preferred provider list, lives in home setting
[2021-03-03 12:11] VITALS: BP 118/77
--- NOTE | 2021-03-03 14:50 | NUR ---
ASSESSMENT CHARTED - MEDS PER DEC -- PRINCE DIET AND FLUIDS. PT UP TO THE BATHROOM WITH THE USE OF WALKER- SOB WITH EXERTION. SEEN BY PHYS AND OCC THERAPY THIS SHIFT. NO CO'S OF PAIN OR NAUSEA. HAS BEEN UP IN THE CHAIR - NO CO'S AT THE PRESENT TIME.
--- NOTE | 2021-03-03 15:28 | NUR ---
Case discussed with the care team. Pt accepted at both [facility] and [facility] pending bed availability. No weekend dc anticipated. Update, 124c, and covid test, faxed to both SNFs.Likely dc ready Saturday. CM attempted to visit with the pt twice today to see which place he prefers; without sucess. Will f/u with the pt Saturday to confirm preference and bed status.
[2021-03-03 16:36] VITALS: BP 107/76
[2021-03-03 16:38] VITALS: BP 107/76
[2021-03-03 20:00] VITALS: BP 117/75
[2021-03-04 03:32] LABS: HEMATOCRIT 42.5 % (42.0-52.0); HEMOGLOBIN 13.4 gm/dL (14.0-18.0); MCH 29.3 pg (26.0-34.0); MCHC 31.5 g/dL (28.0-37.0); RBC 4.56 mil/uL (4.50-6.00); RDW 16.4 % (10.5-14.5); WBC 10.4 thou/uL (4.0-11.0)
[2021-03-04 03:37] LABS: CALCIUM 7.9 mg/dL (8.5-10.1); CREATININE 0.9 mg/dL (0.7-1.3); POTASSIUM 4.8 mmol/L (3.5-5.1)
--- NOTE | 2021-03-04 03:57 | NUR ---
PT IS ALERT AND ORIENTED X4. LUNGS ARE CLEAR ON 3 LITERS NASAL CANULA. CPAP AT NIGHT HE REFUSES TO WEAR. VOIDS PER URINAL. COMPLAINS OF LEFT KNEE PAIN TYLNOL GIVEN TO SEE IF IT HELPS IF NOT INFORMED HIM TO DISCUSS WITH PHYSICAN ON PAIN CONTROL. APPEARS IN MILD PAIN. RESTING AFTER MEDS. CALL LIGHT WITHIN REACH IF NEEDS ASSISTANCE PER NURSING
[2021-03-04 04:34] VITALS: BP 101/74
--- NOTE | 2021-03-04 06:19 | HC ---
[facility] [place] [address] CONSULTATION Name: COLIN HYDE Room #: 207-P ADM IN M.R.#: [id number] Admission: 03/01/21 Attend Phys: Reuben Rubin MD Discharge: Date of : 53 Report #: [id number] THIS REPORT FOR: cc: FAM - Family physician unknown FAM - Family physician unknown Baron Mackenzie MD ~ DATE OF SERVICE: 03/02/2021 WOUND CARE CONSULTATION NOTE LOCATION: [facility]. REASON FOR CONSULTATION: Abrasion of right arm. HISTORY OF PRESENT ILLNESS: The patient is a 65-year-old gentleman brought to the hospital by EMS for dark stools and shortness of breath. He has history of congestive heart failure, COPD and respiratory failure with tobaccoism. He was noted to have an abrasion of the right arm. The patient chronically is on home oxygen. He had been recently hospitalized and discharged. Wound care is consulted due to the abrasion of his arm. PAST MEDICAL HISTORY: COPD, congestive heart failure, tobaccoism, COPD with emphysema, rheumatic heart valve disease. SOCIAL HISTORY: Active tobaccoism. ALLERGIES: SULFA. MEDICATIONS: Include albuterol, aspirin, atorvastatin, diltiazem, Lasix, and prednisone. PHYSICAL EXAMINATION: GENERAL: Shows a thin, alert, elderly man who appears chronically ill. Respirations are unlabored. HEENT: Mucous membranes are moist. ABDOMEN: Soft. EXTREMITIES: Shows some dry skin in the lower extremities, which we will order AmLactin. Examination of the upper extremities shows some ecchymosis about the wrist and an open 2.5 x 2.5 cm superficial abrasion of the right dorsal distal forearm with some crusted drainage. This appears noninfected. IMPRESSION AND PLAN: 1. Mild protein-calorie malnutrition, albumin 2.5. 2. Chronic respiratory failure with chronic obstructive pulmonary disease. 3. Tobaccoism. [facility] [address] [place] [address] CONSULTATION Name: COLIN HYDE Room #: 207-P ADM IN M.R.#: [id number] Admission: 03/01/21 Attend Phys: Reuben Rubin MD Discharge: Date of : 53 Report #: [id number] 4. Congestive heart failure. 5. Abrasion of right forearm for which we will order gentamicin 0.1% cream apply twice daily, covered with Xeroform and Kerlix wrap. Order AmLactin skin moisturizer for both legs. Wound care team will follow. [employer] nutrition. <ELECTRONICALLY SIGNED> By: Baron Mackenzie MD 03/04/21 0619 1003 1116 Baron Mackenzie MD /nt
[2021-03-04 07:21] VITALS: BP 98/70
[2021-03-04 11:06] VITALS: BP 102/63
[2021-03-04 15:05] VITALS: BP 95/63
--- NOTE | 2021-03-04 16:59 | NUR ---
ASSESSMENT CHARTED - MEDS PER DEC - NO CO'S OF PAIN OR NASUEA. UP TO THE BATHROOM WITH THE USE OF A WALKER AND STBY-MIN ASSIST. PT BECOMES SHORT OF BREATH WITH EXERTION. PRINCE DIET AND FLUIDS. LASIX INCREASED TO BIC TODAY. DRESSING TO R FORAMR COMPLETED - APPEARS TO BE HEALING. CREAM TO LEGS BILAT. NO CO'S AT THE PRESENT TIME.
[2021-03-04 19:17] VITALS: BP 104/74
[2021-03-05 03:30] VITALS: BP 94/63
--- NOTE | 2021-03-05 04:20 | NUR ---
PT IS ALERT AND ORIENTED X4. LUNGS ARE DIMINISHED ON 3 LITERS NASAL CANULA. RESTING IN BED WATCHES TV AT TIMES. COMPLAINTS OF HEART BURN TUMS GIVEN FOR COMPLAINTS NOTED. ABDOMEN IS FLAT BOWEL SOUNDS ACTIVE. VOIDS PER URINAL. CALL LIGHT WITHIN REACH IF NEEDS ASSISTANCE PER NURSING.
[2021-03-05 05:22] LABS: HEMATOCRIT 41.2 % (42.0-52.0); MCH 29.5 pg (26.0-34.0); MCHC 31.5 g/dL (28.0-37.0); MCV 93.4 fL (80.0-100.0); RBC 4.42 mil/uL (4.50-6.00); RDW 16.6 % (10.5-14.5); WBC 10.3 thou/uL (4.0-11.0)
[2021-03-05 05:27] LABS: CALCIUM 7.7 mg/dL (8.5-10.1); CREATININE 0.9 mg/dL (0.7-1.3); POTASSIUM 4.7 mmol/L (3.5-5.1)
[2021-03-05 07:24] VITALS: BP 121/75
[2021-03-05 11:41] VITALS: BP 100/70
[2021-03-05 15:06] VITALS: BP 102/67
--- NOTE | 2021-03-05 16:26 | NUR ---
ASSUMED PATIENT CARE AT 0700. PATIENT ON 3L OF OXYGEN. WOUND CARE DONE PER ORDERS. ENCOURAGING PATIENT TO EAT MEALS UP IN CHAIR. AMBULATES TO BATHROOM WITH WALKER. VITAL SIGNS STABLE. WILL CONTINUE TO MONITOR.
[2021-03-05 19:30] VITALS: BP 115/75
--- NOTE | 2021-03-06 02:33 | NUR ---
ASSUMED PT CARE AT 1900, ALERT AND ORIENTEDX4, SR/BBB ON TELE, TYL GIVEN FOR KNEE PAIN WITH RELIEF, ASSESSMENTS CHARTED, VOIDS PER URINAL, MEDS GIVEN PER DEC, NO NEEDS AT THIS TIME, WILL CONTINUE TO MONITOR AND FOLLOW POC
[2021-03-06 04:00] VITALS: BP 111/79
[2021-03-06 04:19] LABS: HEMATOCRIT 40.1 % (42.0-52.0); HEMOGLOBIN 12.7 gm/dL (14.0-18.0); MCH 28.9 pg (26.0-34.0); MCHC 31.7 g/dL (28.0-37.0); MCV 91.1 fL (80.0-100.0); RBC 4.4 mil/uL (4.50-6.00); RDW 16.5 % (10.5-14.5); WBC 9.2 thou/uL (4.0-11.0)
[2021-03-06 04:25] LABS: CALCIUM 7.5 mg/dL (8.5-10.1); CREATININE 0.8 mg/dL (0.7-1.3); POTASSIUM 4.2 mmol/L (3.5-5.1)
[2021-03-06 08:44] VITALS: BP 118/81
[2021-03-06 11:50] VITALS: BP 126/83
[2021-03-06] MEDS ORDERED: PULMICORT0.5 MG/21 INH (12:14)
[2021-03-06] MEDS ORDERED: NICOTINE1 EAC2 TRANSDERM (12:14)
[2021-03-06] MEDS ORDERED: CEFDINIR300 MG PO (12:15)
[2021-03-06] MEDS ORDERED: PREDNISONE 10 M10 M1 PO (12:15)
--- NOTE | 2021-03-06 13:53 | NUR ---
met with patient and questioned his preference for dc either [facility] or [facility]. Patient reports no to [facility] and he prefers to dc home. Sp with Dr Villalobos who reports he needs skilled rehab. Patient complaining of diarrhea. Discussed with Marlee with PT with patient regarding at skilled rehab. Assured they can monitor him as well as therapy. Patient concerned with payment. Discussed medicare covers first 20 days at 100% if have not used days previously. Patient agreeable to skilled. Chooses [facility] and requests 3 pm transport. Sp with Dann from [facility] [employer] who arranged 3pm transport. Requested she sp with patient regarding payment/coverage. She reports she will call him in room but this all was discussed on Saturday. Chart copied. Faxed dc orders. Alerted to RN time of transport and number for report.
--- NOTE | 2021-03-06 15:51 | NUR ---
AT 1520 PATIENT LEAVES FOR [facility]. PATIENT OCCOMPANIED BY TRANSFER STAFF, FOOD SERVICE HOTEL RUNNER. PATIENT TRANSPORTS VIA WHEELCHAIR. FOREARM PICTURES TAKEN OF RIGHT FORARM BEFORE LEAVING. PATIENT LEAVES WITH ALL BELONGINGS.
== END 2021-03-06 15:30 | DRG 377 ==
LOC: ER 14:39 → 2N 18:20 → EROBS 18:20 → 2N 20:33
PROVIDERS: Hospitalist; Nurse Practitioner Family; Physician Assistant; ADMIT Internal Medicine; ATTEND Internal Medicine
PROC: 5A09357 Assistance with Respiratory Ventilation, Less than 24 Consecutive Hours, Continuous Positive Airway Pressure (ICD-10-PCS; principal; 2021-03-02)
DX: K62.5 Hemorrhage of anus and rectum (principal); J96.21 Acute and chronic respiratory failure with hypoxia; E43 Unspecified severe protein-calorie malnutrition; J96.22 Acute and chronic respiratory failure with hypercapnia; I50.33 Acute on chronic diastolic (congestive) heart failure; L03.115 Cellulitis of right lower limb; E44.0 Moderate protein-calorie malnutrition; I11.0 Hypertensive heart disease with heart failure; L98.499 Non-pressure chronic ulcer of skin of other sites with unspecified severity; I27.81 Cor pulmonale (chronic); I25.10 Atherosclerotic heart disease of native coronary artery without angina pectoris; I27.20 Pulmonary hypertension, unspecified; E78.5 Hyperlipidemia, unspecified; X58.XXXA Exposure to other specified factors, initial encounter; J43.9 Emphysema, unspecified; S50.811A Abrasion of right forearm, initial encounter; Z20.822 Contact with and (suspected) exposure to COVID-19; Z88.2 Allergy status to sulfonamides; Z79.899 Other long term (current) drug therapy; I25.2 Old myocardial infarction; Y93.89 Activity, other specified; Y92.89 Other specified places as the place of occurrence of the external cause; Y99.8 Other external cause status
CPT/HCPCS: 10081

== ENCOUNTER 2021-03-13 18:39 | Inpatient (IN) | payer OTHER ==
[~2021-03-13] VITALS: Ht 175.3 cm; Wt 59.0 kg
--- NOTE | ~2021-03-13 | EMS ---
[facility] [address] [place] [address] EMS Patient Care Report Name: COLIN HYDE Room #: 170-3 ADM IN M.R.#: [id number] Admission: 03/13/21 Attend Phys: Jason Diaz Discharge: Date of : 53 Report #: [id number] THIS REPORT FOR: //name// Report Transmitted: 03/13/2021 22:55 EMS Care Summary [place], [place]/[facility] Incident [id number] @ 03/13/2021 18:11 Incident [address] [place] [address] Patient COLIN HYDE Male, 65 Years 1955 Patient Address [id number] [address] Patient History Chronic Obstructive Pulmonary Disease (COPD),Hypertension (HTN),Dysphagia,None Reported,Cellulitis,Myocardial Infarction (CA), Patient Allergies Sulfa, Patient Medications None Reported, Chief Complaint abdominal pain Disposition Transported No Lights/[place] Dispatch Reason Sick Person Transported To [facility] Narrative Dispatched to a [facility] in regards to a sick. Upon arrival, I saw patient sitting on the edge of his bed. initial assessment revealed that [facility] [address] [place] [address] EMS Patient Care Report Name: COLIN HYDE Room #: 170-3 ADM IN M.Nhan.#: [id number] Admission: 03/13/21 Attend Phys: Jason Diaz Discharge: Date of : 53 Report #: [id number] patient was A&Ox4 and did not appear to be in respiratory distress. Patients chief complaint was abdominal pain x3 months. Patient also stated that he was having difficulty breathing. Staff stated that they were unaware that patient called 911. Physical assessment revealed that patient was pink warm and dry. Patient was able to ambulate unassisted to our cot. Patient was secured to our cot and lifted into the ambulance. Treatment rendered was obtaining a complete set of baseline vital signs including oxygen administration. Patient was transported to [facility] and patient care was transferred on arrival. Initial Vitals @18:36P: 100,R: 20,BP: 120/84,Pain: 6/10,GCS: 15,SpO2: 98,Revised Trauma: 12, Assessments @18:25MENTAL:Person Oriented,Time Oriented,Place Oriented,Event Oriented,SKIN:HEENT:LUNG SOUNDS:ABDOMEN:PELVIS//GI:EXTREMITIES:PULSE:NEURO: Impression Abdominal Pain Procedures @18:30ALS AssessmentResponse: UnchangedSucceeded@18:30Oxygen FlowRate: 3 Device: Nasal Cannula (NC) Response: UnchangedSucceeded Timeline 18:07,Call Received 18:07,Dispatch Notified 18:11,Dispatched 18:11,En Route 18:20,On Scene 18:21,At Patient 18:30,Oxygen FlowRate: 3 Device: Nasal Cannula (NC) Response: UnchangedSucceeded, 18:30,ALS Assessment,Response: UnchangedSucceeded, 18:34,Depart Scene 18:36,BP: 120/84 M,PULSE: 100,RR: 20 R,SPO2: 98 Ox,ETCO2: ,BG: ,PAIN: 6,GCS: 15, 18:37,At Destination 18:53,Call Closed Disclaimer v1.1 Copyright 2020 [employer] This EMS Care Summary contains data elements from the applicable legal record (which may be displayed differently). It is designed to provide pertinent information for the following purposes: continuity of care, clinical quality, and state data reporting. The complete legal record is available to ED staff [address] [address] EMS Patient Care Report Name: COLIN HYDE Room #: 170-3 ADM IN M.R.#: [id number] Admission: 03/13/21 Attend Phys: Jason Diaz Discharge: Date of : 53 Report #: [id number] and administrators of the receiving hospital in ES's Patient Tracker. All data is provided "as is."
[~2021-03-13 18:39] MED LIST changes: +CEFDINIR300 MG PO; +NICOTINE1 EAC2 TRANSDERM; +PREDNISONE 10 M10 M1 PO; +PULMICORT0.5 MG/21 INH
[2021-03-13 18:49] VITALS: BP 122/101
[2021-03-13 20:22] LABS: ABSOLUTE NEUTROPHILS 18.1 thou/uL (1.4-8.2); BASOPHILS 0.1 % (0.0-2.0); EOSINOPHILS 0.1 % (0.0-3.0); HEMATOCRIT 47.2 % (42.0-52.0); HEMOGLOBIN 15.4 gm/dL (14.0-18.0); LYMPHOCYTES 1.7 % (24.0-44.0); MCH 29.2 pg (26.0-34.0); MCHC 32.7 g/dL (28.0-37.0); MCV 89.2 fL (80.0-100.0); MONOCYTES 3.2 % (1.0-8.0); PLATELET COUNT 184 thou/uL (150-400); POLYS 94.9 % (36.0-66.0); RBC 5.29 mil/uL (4.50-6.00); RDW 15.7 % (10.5-14.5); WBC 19.1 thou/uL (4.0-11.0)
[2021-03-13 20:28] LABS: ANION GAP 0 mmol/L (7-16); BUN 26 mg/dL (7-18); CALCIUM 8.4 mg/dL (8.5-10.1); CHLORIDE 95 mmol/L (98-107); CO2 41 mmol/L (21-32); CREATININE 0.8 mg/dL (0.7-1.3); GLUCOSE 92 mg/dL (74-106); POTASSIUM 4.1 mmol/L (3.5-5.1); SODIUM 136 mmol/L (136-145)
[2021-03-13 20:38] LABS: ALBUMIN 2.1 g/dL (3.4-5.0); LIPASE 34 U/L (73-393); SGOT 26 U/L (15-37); SGPT 42 U/L (16-63); TOTAL BILIRUBIN 0.9 mg/dL (0.2-1.0); TOTAL PROTEIN 5.1 g/dL (6.4-8.2); TROPONIN-I <0.06 ng/mL (<0.06)
[2021-03-13 23:18] VITALS: BP 117/81
[2021-03-14 00:46] VITALS: BP 110/78
[2021-03-14 00:49] VITALS: BP 121/83
[2021-03-14] MEDS ORDERED: ACIDOPHILUS LA1 EAC1 PO (01:12)
[2021-03-14 03:47] VITALS: BP 100/74
--- NOTE | 2021-03-14 05:20 | NUR ---
PT HAS 3 PREVIOUS VISITS IN LAST TWO MONTHS AT [facility]. PT'S MOODS FLIP QUICKLY IF HE IS BEING RUSHED. I FOUND PREVIOUSLY IF YOU EXPLAIN EVERYTHING SLOWLY AND BE RESPECTFUL HE WILL UNDERSTAND BETTER AND BE MORE COMPLIANT. PT ALSO LIKES TO HAVE HIS BELONGINGS WITHIN EYE SIGHT. PT HAS BEEN NPO SINCE ARRIVING TO THE FLOOR FROM ER. PT HAS NO COMPLAINTS AND HAS RESTED SOME. PT HAS PREVIOUS PSYCH HISTORY FROM [facility] AND [facility]
[2021-03-14 06:23] LABS: HEMATOCRIT 44.4 % (42.0-52.0); HEMOGLOBIN 14.4 gm/dL (14.0-18.0); MCHC 32.5 g/dL (28.0-37.0); MCV 89.3 fL (80.0-100.0); PLATELET COUNT 187 thou/uL (150-400); RBC 4.97 mil/uL (4.50-6.00); RDW 15.6 % (10.5-14.5); WBC 21.3 thou/uL (4.0-11.0)
[2021-03-14 06:36] LABS: ALBUMIN 1.7 g/dL (3.4-5.0); ANION GAP < 0 mmol/L (7-16); BUN 22 mg/dL (7-18); CALCIUM 7.5 mg/dL (8.5-10.1); CHLORIDE 99 mmol/L (98-107); CO2 40 mmol/L (21-32); CREATININE 0.8 mg/dL (0.7-1.3); GLUCOSE 72 mg/dL (74-106); POTASSIUM 4.4 mmol/L (3.5-5.1); SGOT 24 U/L (15-37); SGPT 34 U/L (16-63); SODIUM 135 mmol/L (136-145); TOTAL BILIRUBIN 0.6 mg/dL (0.2-1.0); TOTAL PROTEIN 4.4 g/dL (6.4-8.2)
[2021-03-14 08:03] VITALS: BP 103/76
[2021-03-14 08:52] LABS: ABSOLUTE NEUTROPHILS 20.4 thou/uL (1.4-8.2); PLATELET ESTIMATE NORMAL
--- NOTE | 2021-03-14 09:38 | 2DMMODE ---
[facility] [place] [address] [place] [address] 2 D/M-MODE ECHOCARDIOGRAM Name: COLIN HYDE Room #: 356-P ADM IN M.R.#: [id number] Admission: 03/13/21 Attend Phys: Hilary August MD Discharge: Date of : 53 Report #: [id number] THIS REPORT FOR: cc: FAM - Family physician unknown FAM - Family physician unknown Rodney Rivers MD [facility] ~ APPROVED REPORT Study performed: 03/14/2021 07:55:20 EXAM: Limited 2D, Doppler, and color-flow Echocardiogram Patient Location: Echo lab Room #: [facility] Status: routine BSA: 1.63 HR: 110 bpm BP: 103/76 mmHg Rhythm: Tachycardia Other Information Study Quality: Adequate Technically limited study due to thin body habitus, COPD, sitting up in bed. Only subcostal window.. Indications Pre-Op. Hx: CHF, PHTN, COPD. Aortic Valve AoV Peak Kevan.: 1.44 m/s AO Peak Gr.: 8.24 mmHg Tricuspid Valve TR Peak Kevan.: 3.29 m/s RAP Estimate: 5.00 mmHg TR Peak Gr.: 43.37 mmHg PA Pressure: 48.00 mmHg Left Ventricle The left ventricle is normal size. Flattened septum consistent with right ventricular pressure overload. Left ventricular systolic function is normal. LVEF is 55-60%. Right Ventricle Right ventricle is dilated. Right ventricle is hypokinetic. [facility] [place] [address] 2 D/M-MODE ECHOCARDIOGRAM Name: COLIN HYDE Room #: 356-P ADM IN M.R.#: [id number] Admission: 03/13/21 Attend Phys: Hilary August MD Discharge: Date of : 53 Report #: [id number] [employer] The left atrium size is normal. Right atrium is dilated. Aortic Valve Aortic valve leaflets are mildly thickened and calcified. No aortic regurgitation is present. There is no aortic valvular stenosis. Mitral Valve Mitral valve leaflets are thickened. Mild mitral annular calcification. There is no mitral valve regurgitation noted. No evidence of mitral valve stenosis. Tricuspid Valve The tricuspid valve is normal in structure. Mild tricuspid regurgitation. Estimated PAP is 45-50mmHg. Pulmonic Valve The pulmonary valve is normal in structure. Trace pulmonic regurgitation. Great Vessels IVC is normal in size and collapses >50% with inspiration. Pericardium Small pericardial effusion. <Conclusion> Normal left ventricle size/wall thickness Ejection fraction 60-65% Right ventricle moderately dilated/hypokinetic Mild right atrial enlargement Color-flow Doppler study was performed of the aortic/mitral/tricuspid/pulmonary valve Moderately calcified aortic valve, no stenosis detected Moderate mitral annular calcification, the posterior leaflet appears to be fixed No evidence of mitral valve stenosis Mild tricuspid valve insufficiency with a PA pressure estimated 50 mmHg [facility] [address] [place] [address] 2 D/M-MODE ECHOCARDIOGRAM Name: COLIN HDYE Room #: 356-P ADM IN M.R.#: [id number] Admission: 03/13/21 Attend Phys: Hilary August MD Discharge: Date of : 53 Report #: [id number] No pericardial effusion Normal aortic root size. <ELECTRONICALLY SIGNED> By: Rodney Rivers MD, FACC 03/14/21937 7 7 Rodney Rivers MD, FACC /INF
--- NOTE | 2021-03-14 10:03 | NUR ---
Nutrition: If surgery/extended NPO anticipated, REC consider initiation of TPN in severely malnourished pt. Standard TPN at 75 mL/hr will meet 95-100% of needs. Caution refeeding syndrome.
--- NOTE | 2021-03-14 13:06 | EKG ---
[address] [employer] [address] ELECTROCARDIOGRAM REPORT Name: BARRETTCOLIN Room #: 356-P ADM IN M.R.#: [id number] Admission: 03/13/21 Attend Phys: Hilary August MD Discharge: Date of : 53 Report #: [id number] [facility] ED Test Date: 2021-03-13 Test Time: 19:44:17 Pat Name: COLIN HYDE Department: Room: 356 Gender: M Retort Cooler: ELLIOT : 1955 Requested By: Eron Mcgovern Order Number: [id number] MD: Lamin Dow Measurements Intervals [place] Rate: 104 P: 80 NE: 126 QRS: 134 QRSD: 151 T: 17 QT: 355 QTc: 467 Interpretive Statements Sinus tachycardia Probable left atrial enlargement RBBB and LPFB Noise artifact Baseline wander in lead(s) V3,V4 Compared to ECG 03/01/2021 15:35:05 Electronically Signed On 03-14-2021 13:06:27 CDT by Lamin Dow [email or web address] <ELECTRONICALLY SIGNED> By: Lamin Dow MD 03/14/21 1306 43 43 Lamin Dow MD /CHELSY
[2021-03-14 15:37] VITALS: BP 110/77
--- NOTE | 2021-03-14 15:37 | NUR ---
INITIAL ASSESSMENT: Received consult. TINA reviewed chart and spoke with nursing and attending physician. Pt was admitted from [facility] due to abdominal pain/sepsis. Surgery consulted. Pt is on 4L of O2 and IV abx. Pt refused to consent to surgical procedure. Psych consulted. TINA was present with Dr. Dc at bedside this morning. Pt was deemed to not have capacity to refuse surgery. Surgery scheduled for 1200 today based on medical necessity. Pt's brother, Eran, has been contacted. TINA spoke with Eran via phone. Introduced role of TINA. Eran has been involved with care plan meetings with the staff at [facility]. Per Eran, he is unsure if pt will be able to return to his apartment after SNF, or if he may need LTC placement. TINA faxed clinical/therapy info to [facility]. TINA spoke with Samaria in admissions to provide update. [facility] is able to accept pt back when medically stable. TINA is following to assist as needed with discharge planning.
[2021-03-14 20:00] VITALS: BP 111/79
[2021-03-15 04:00] VITALS: BP 103/70
[2021-03-15 05:21] LABS: ABSOLUTE NEUTROPHILS 17.2 thou/uL (1.4-8.2); BASOPHILS 0.7 % (0.0-2.0); HEMATOCRIT 46.5 % (42.0-52.0); HEMOGLOBIN 14.7 gm/dL (14.0-18.0); LYMPHOCYTES 0.8 % (24.0-44.0); MCH 28.8 pg (26.0-34.0); MCHC 31.7 g/dL (28.0-37.0); PLATELET COUNT 207 thou/uL (150-400); POLYS 96.5 % (36.0-66.0); RBC 5.11 mil/uL (4.50-6.00); WBC 17.8 thou/uL (4.0-11.0)
[2021-03-15 05:49] LABS: CALCIUM 7.7 mg/dL (8.5-10.1); CREATININE 0.8 mg/dL (0.7-1.3); POTASSIUM 4.5 mmol/L (3.5-5.1)
[2021-03-15 06:32] LABS: URINE BLOOD NEGATIVE (Negative); URINE CLARITY CLEAR; URINE GLUCOSE-RANDOM* NEGATIVE (Negative); URINE KETONES TRACE (Negative); URINE LEUKOCYTES-REFLEX NEGATIVE (Negative); URINE NITRITE-REFLEX NEGATIVE (Negative); URINE PROTEIN (DIPSTICK) TRACE (Negative); URINE UROBILINOGEN 0.2 E.U./dl (0.2-1.0)
[2021-03-15 06:33] LABS: URINE COLOR AMBER
[2021-03-15 06:34] LABS: URINE BILIRUBIN NEGATIVE (Negative)
--- NOTE | 2021-03-15 06:34 | NUR ---
VSS STABLE AFTER SURGERY. TELE SHOWS HR AT 102. FOLLOWING POC WITH IVPB ANTIBIOTICS. PT DENIES ANY PAIN EXCEPT FOR WHEN MOVING. WOUND AT MIDLINE C/D/I. PT VOIDING VIA URINAL. URINE CAPTURED FOR UA ORDER, STILL NEEDING A STOOL SAMPLE. PT REQUESTING WATER TO DRINK.
[2021-03-15 06:35] LABS: ICTOTEST (BILI CONFIRMATORY) Negative (Negative)
[2021-03-15 07:16] VITALS: BP 119/84
--- NOTE | 2021-03-15 08:35 | HC ---
[facility] [place] [address] [place] [address] CONSULTATION Name: COLIN HYDE Room #: 356- ADM IN M.R.#: [id number] Admission: 03/13/21 Attend Phys: Hilary August MD Discharge: Date of : 53 Report #: [id number] THIS REPORT FOR: cc: FAM - Family physician unknown FAM - Family physician unknown Alvarado Dc DO ~ DOC #: [id number] ALVARADO Dc DO DATE OF SERVICE: 03/14/2021 INPATIENT PSYCHIATRIC CONSULTATION PRIMARY ATTENDING: Hilary August M.D. GENERAL PHARMACY CLINICAL COORDINATOR: Jesus Paige MD PULMONARY ZIPPER SETTER LOCKSTITCH: Eldon Mahan M.D. VOCATIONAL REHABILITATION ADMINISTRATOR: Dr. Sales. REASON FOR CONSULTATION: Capacity to make higher level medical decisions, namely refused potential general surgery intervention for perforated bowel. SOURCES OF INFORMATION: Interview with the patient, chart reviewed, conversation with Dr. Paige, conversation with Dr. Mahan. HISTORY OF PRESENT ILLNESS: This is a 65-year-old thin, malnourished-appearing male, who was sent over on the from the [facility]. The ER documentation noted that he had lower abdominal pain that began the morning of admission. He reports onset after breakfast and made a comment, "it is like they poisoned me at breakfast this morning." He also complained of diarrhea. PAST MEDICAL HISTORY: Quite complicated including COPD, heart failure, possible dementia. The group social worker informed me he has no healthcare DPOA. Interestingly, it is noted that the patient called 911 himself. ADDITIONAL MEDICAL HISTORY: History of an [place], CHF, hypertension, hyperlipidemia, tobacco dependence, history of pericardial effusion, hypoalbuminemia, rheumatic disorders of both the aortic and tricuspid valves, possible stroke yesterday. HOME MEDICATIONS: Include albuterol sulfate, aspirin, atorvastatin, diltiazem, furosemide, prednisone is listed as well. He is on 3 liters of oxygen. ALLERGIES: SULFA. [facility] [address] [place] [address] CONSULTATION Name: COLIN HYDE Room #: 356-P [facility] IN ..#: [id number] Admission: 03/13/21 Attend Phys: Hilary August MD Discharge: Date of : 53 Report #: [id number] SOCIAL HISTORY: Smoking is an ongoing issue. No alcohol, no recreational drug use. REVIEW OF SYSTEMS: On the hospitalist H and P for review of systems, it was just the abdominal pain, negative otherwise on the 14 point. LABORATORY DATA: CT scan of the abdomen was significant for moderate to large amount of ascites and diffuse subcutaneous edema consistent with fluid overload and anasarca. Labs from the , today, white count has increased to 21.3 from 19.1 yesterday, H and H 14.4 and 44.4, platelet count 187. Chemistries: Sodium 135, potassium 4.4, chloride 99, bicarbonate 40, anion gap less than 0, BUN 22, creatinine 0.8, estimated GFR 97, glucose 72, calcium 7.5, AST 24, ALT 34, alkaline phosphatase 83, total protein 4.4, albumin 1.7. Urinalysis is not received, that should be done. Recommended a UDS will be done for completeness. COVID-19 test is negative. MICROBIOLOGY: There are two blood cultures pending, preliminarily no growth. Apparently last night, the patient refused surgery a little after midnight and that triggered a psychiatric evaluation. PHYSICAL EXAMINATION: GENERAL: In bed, on oxygen, the bed of head is raised up, cachectic appearing. MENTAL STATUS EXAMINATION: This is a well-developed, ill-appearing male, bearded, wearing oxygen and glasses. Attention limited. Concentration limited. Speech soft, slow. Thought process, linear and goal directed. Thought content, focused on the present. No psychomotor agitation, some psychomotor retardation. The patient did not feel any pain. Orientation, he needed to look at his phone to tell me the month and day of the week. He did know he was in [facility]. When I asked him what would happen if he did not get the infection treatment ____, then he just said it would get worse. He was unable to tell me about his other medical conditions including heart failure, COPD. Insight and judgment limited. Fund of knowledge is diminished. Mood and affect is constricted, congruent. FORMULATION: A 65-year-old male admitted through the ER for an acute abdomen. DIAGNOSES: At this time, delirium secondary to general medical condition, namely leukocytosis, chronic obstructive pulmonary disease, congestive heart failure , possible perforated bowel requiring exploratory laparotomy. RECOMMENDATIONS: Given the situation and the patient's only very general recall of his healthcare concerns, I do not believe that the patient has capacity to make higher level medical decisions including need for surgery, anesthesia. Per [facility] [address] [place] [address] CONSULTATION Name: COLIN HYDE Room #: 356-P [facility] IN M.R.#: [id number] Admission: 03/13/21 Attend Phys: Hilary August MD Discharge: Date of : 53 Report #: [id number] group social worker, he does not have a healthcare DPOA. Certainly if this would be considered a life-threatening surgical emergency, it would be reasonable to treat the condition given that the patient cannot consent. I have spoken with Dr. Jesus Paige about the situation, and once the infection is under control, then any surgical issues have been taken care of myself or Dr. Case will be happy to reevaluate the patient's regain capacity. If further consultation is needed including any delirium management, please call Dr. Case and myself. Time spent on this case is over 60 minutes, greater than 50% of time was counseling and coordination of care. Interaction with nursing staff and Dr. Paige. DO AVELINO Barrios/NARCISA/DEYANIRA <ELECTRONICALLY SIGNED> By: Alvarado Dc DO 03/15/21 0835 [id number] Alvarado Dc DO /nt
--- NOTE | 2021-03-15 10:27 | O ---
[facility] [place] [address] OPERATIVE REPORT Name: COLIN HYDE Room #: 356-P ADM IN M.R.#: [id number] Admission: 03/13/21 Attend Phys: Hilary August MD Discharge: Date of : 53 Report #: [id number] THIS REPORT FOR: cc: FAM - Family physician unknown FAM - Family physician unknown Piyush Gillespie MD ~ DOC #: [id number] Piyush Gillespie MD DATE OF SERVICE: 03/14/2021 PREOPERATIVE DIAGNOSIS: Perforated viscus, peritonitis. POSTOPERATIVE DIAGNOSIS: Peritonitis. OPERATION: Exploratory laparotomy. OPERATION: 1. Diagnostic laparoscopy. 2. Exploratory laparotomy. SURGEON: Piyush Gillespie M.D. ANESTHESIA: General. ESTIMATED BLOOD LOSS: Minimal. SPECIMENS: Fluid for culture and sensitivity. DESCRIPTION OF PROCEDURE: After informed consent was obtained, the patient was brought to the operating room and placed supine. SCDs were placed and working. Preoperative antibiotics were administered. General anesthesia was induced. The abdomen was prepped and draped in the usual sterile fashion. A 10 mm incision was made above the umbilicus. Fascia was incised and a trocar was placed. Pneumoperitoneum was established. Laparoscope was inserted. There was pus all over the abdomen and therefore a good exploration could not be undertaken laparoscopically. Laparoscope was removed. Midline incision was made from around the umbilicus up to the xiphoid. Fascia was incised. I was able to suction out all of the pus. It was cultured. I was then able to explore the abdomen. The liver appeared normal. The stomach appeared normal. I was not able to find any ulcerations or perforations in the stomach or duodenum. Gallbladder was normal. I then ran the small bowel proximally and distally. This was all normal. The ascending colon, transverse colon, and descending colon were all normal. The sigmoid colon was normal. Again, there was pus throughout the abdomen. This [facility] [address] [place] [address] OPERATIVE REPORT Name: COLIN HYDE Room #: 356-P ADM IN M.R.#: [id number] Admission: 03/13/21 Attend Phys: Hilary August MD Discharge: Date of : 53 Report #: [id number] was copiously irrigated with normal saline. I was not able to find any areas of overt perforation. Again, the abdomen was irrigated with warm normal saline. The fascia was closed with 0 PDS in running fashion. Skin was closed with 4-0 Monocryl. Incision was dressed with Steri-Strips and gauze. COMPLICATIONS: None. DISPOSITION: The patient was taken to recovery in satisfactory condition. Piyush Gillespie MD JDP/RAMÓN <ELECTRONICALLY SIGNED> By: Piyush Gillespie MD 03/15/21 1027 1410 1447 Piyush Gillespie MD /marquis
[2021-03-15 11:05] VITALS: BP 113/84
--- NOTE | 2021-03-15 12:08 | HC ---
[facility] [place] [address] CONSULTATION Name: COLIN HYDE Room #: 356-P ADM IN M.R.#: [id number] Admission: 03/13/21 Attend Phys: Hilary August MD Discharge: Date of : 53 Report #: [id number] THIS REPORT FOR: cc: FAM - Family physician unknown FAM - Family physician unknown Iban Burton MD ~ DOC #: [id number] Iban Burton MD DATE OF SERVICE: 03/14/2021 INFECTIOUS DISEASE CONSULTATION ATTENDING PHYSICIAN: Dr. Hilary August. REASON FOR EVALUATION: Enterocolitis, abdominal viscus perforation with pneumoperitonitis. HISTORY OF PRESENT ILLNESS: This is a 65-year-old gentleman with extensive medical history, does have underlying chronic obstructive pulmonary disease with acute on chronic respiratory failure, has cardiomyopathy, known coronary artery disease, who apparently has been ill for the last couple of weeks, somewhat difficult to get a history. He states questionable stroke. Denies significant abdominal related pain at this point, although apparently he presented from facility complaining of abdominal pain. Of note, he had been hospitalized within the last couple of weeks with complaints of dyspnea, felt to have multifactorial etiology including underlying lung disease, heart failure, does admit to chills. He is unaware of fevers. He has had some anorexia with poor p.o. intake. Evaluation was undertaken. Chest x-ray was relatively unremarkable. He was found to have an elevated white count 19.1. CT abdomen and pelvis showed ascites with diffuse subcutaneous edema, felt to have enterocolitis and was confirmed to have a small pneumoperitoneum consistent with a perforation. Lactic acid is 1.6. Coronavirus testing was negative. Blood cultures have been collected and are sterile thus far. Repeat white count was 21,000, was evaluated by surgery. There is some hesitancy on the patient's part. Empirically started on antibiotics with ceftriaxone and Flagyl. ALLERGIES: LISTED TO SULFA. MEDICATIONS: Include ceftriaxone, famotidine, diltiazem CD, atorvastatin, aspirin, budesonide, tiotropium, albuterol inhaler, Flagyl and p.r.n. ondansetron. PAST MEDICAL HISTORY: As above, COPD, history of congestive heart failure, cardiomyopathy, coronary artery with a previous acute myocardial infarction, hypertension, hyperlipidemia, history of rheumatic fever with valvular disease, previous stroke, pulmonary fibrosis. [address] [address] CONSULTATION Name: COLIN HYDE Room #: 356-P [facility] IN M.R.#: [id number] Admission: 03/13/21 Attend Phys: Hilary August MD Discharge: Date of : 53 Report #: [id number] SOCIAL HISTORY: Former smoker, no ethanol, no illicit drug use. FAMILY HISTORY: Noncontributory. REVIEW OF SYSTEMS: Otherwise, unremarkable. PHYSICAL EXAMINATION: GENERAL: He appears chronically ill and undernourished, mild to moderate distress. He is mildly encephalopathic. VITAL SIGNS: Temperature 98.2, pulse 106, respirations 18, blood pressure 103/76. SKIN: Warm, dry, no rashes. He is not diaphoretic. HEENT: Normocephalic. Extraocular muscles intact. NECK: Supple. LUNGS: Diminished breath sounds. HEART: Regular, occasional ectopy. I do not appreciate a murmur. ABDOMEN: Distended, somewhat firm, not overtly tender. No appreciated peritoneal signs. GENITOURINARY AND RECTAL: Deferred. LABORATORY DATA: Echo, EF of 60 65%, calcified aortic valve. PA pressures estimated at 50. No pericardial effusion. Blood cultures sterile thus far. CBC: White count of 21.3, H and H 14.4 and 44.4, platelets of 187. Electrolytes: Sodium 135, potassium 4.4, chloride 99, bicarbonate is 40, anion gap of greater than 0. BUN and creatinine 22 and 0.8. LFTs unremarkable. Albumin of 1.7. Coronavirus testing was negative. Lactic acid 1.6. CT abdomen and pelvis described above. ASSESSMENT AND PLAN: 1. Enterocolitis unclear etiology, cannot exclude an infectious cause versus ischemic, apparently complicated by perforation. Secondly has underlying severe lung disease. 2. Coronary artery disease with cardiomyopathy, possible history of previous stroke. We will continue empiric therapy for presumed polymicrobial mixed infection including aerobes, anaerobes simplify his regimen, perhaps I noted, there is a question of possible refusal of surgery. At this point, he is not overtly toxic. Continue to monitor expectantly would be at risk in general due to poor nutritional status and likely may require corticosteroids as well. We will add incentive spirometry. He remains tenuous. Iban Burton MD JWChris/CARMENCITA [address] [address] CONSULTATION Name: COLIN HYDE Room #: 356-P ADM IN M.R.#: [id number] Admission: 03/13/21 Attend Phys: Hilary August MD Discharge: Date of : 53 Report #: [id number] <ELECTRONICALLY SIGNED> By: Iban Burton MD 03/15/21 1208 [id number] [id number] Iban Burton MD /nt
--- NOTE | 2021-03-15 14:13 | NUR ---
TINA reviewed chart and spoke with nursing and attending physician. Pt is s/p ex lap. Pt is NPO. Pt is on 4L of O2 and on IV abx. TINA met with pt at bedside. Pt is alert/orientated to self and place. SW discussed returning to [facility] when medically stable. Pt states he will need to think about if he wants to return to [facility]. TINA encouraged pt to discuss with his brother. TINA faxed clinical/therapy updates to [facility] for review. Voice message left for Dann in admissions. Pt is in the BPCI program. BPCI letter faxed with updates. TINA is following to assist as needed with discharge planning.
[2021-03-15 15:13] VITALS: BP 107/76
--- NOTE | 2021-03-15 17:51 | NUR ---
PATIENT'S DIET INCREASED TO CLEAR LIQUID. PATIENT IS MORE AWAKE AND ALERT THIS SHIFT BUT OFTEN QUESTIONS MEDICAL STAFF "DO YOU KNOW WHAT YOUR DOING? DO YOU REALLY KNOW WHAT MEDICATION THAT IS?" BUT HAS BEEN ABLE TO BE REDIRECTED. PATIENT HAS NO C/O ABD PAIN THIS SHIFT.
[2021-03-15 19:15] VITALS: BP 103/74
[2021-03-16 03:34] VITALS: BP 119/83
[2021-03-16 05:31] LABS: HEMATOCRIT 43.4 % (42.0-52.0); MCH 29.3 pg (26.0-34.0); MCHC 32.3 g/dL (28.0-37.0); MCV 90.9 fL (80.0-100.0); RBC 4.77 mil/uL (4.50-6.00); RDW 15.9 % (10.5-14.5); WBC 16.7 thou/uL (4.0-11.0)
[2021-03-16 06:00] LABS: CALCIUM 7.5 mg/dL (8.5-10.1); CREATININE 0.8 mg/dL (0.7-1.3)
[2021-03-16 07:21] VITALS: BP 109/82
[2021-03-16 11:28] VITALS: BP 112/68
--- NOTE | 2021-03-16 13:53 | NUR ---
TINA reviewed chart and spoke with nursing and attending physician. Pt is slowly progressing towards goals for discharge. Pt on clear liquids today. Pt is on 4L of O2 and IV abx. TINA faxed clinical/therapy updates to [facility] for review. TINA spoke with Dann in admissions to provide update. TINA met with pt at bedside to discuss discharge plan. Pt appears to be agreeable with plan to return to [facility] when medically stable. TINA encouraged pt to speak with his brother about discharge plan. TINA is following to assist as needed with discharge planning.
[2021-03-16 16:15] VITALS: BP 96/71
--- NOTE | 2021-03-16 17:24 | NUR ---
ASSUMED PT CARE AT SHIFT CHANGE, PT PLEASANTLY CONFUSED. ABDOMINAL DRESSING DRY, INTACT. PT PREFERS TO HAVE ALL PERSONAL BELONGINGS ON BEDSIDE TABLE. PT ACCEPTING OF NURSING CARE AND MEDICATIONS PRESCRIBED.
[2021-03-16 19:15] VITALS: BP 94/69
[2021-03-17 04:35] VITALS: BP 101/51
[2021-03-17 05:25] LABS: HEMATOCRIT 42.6 % (42.0-52.0); HEMOGLOBIN 13.5 gm/dL (14.0-18.0); MCH 28.8 pg (26.0-34.0); MCHC 31.7 g/dL (28.0-37.0); MCV 90.8 fL (80.0-100.0); RBC 4.69 mil/uL (4.50-6.00); RDW 15.8 % (10.5-14.5); WBC 12.5 thou/uL (4.0-11.0)
--- NOTE | 2021-03-17 07:19 | NUR ---
PROGRESS PT ALERT, PLEASANT AND COOPERATIVE. VSS, TELE INTACT UP WITH GB WALKER AND ASSIST OF 1 TO 2 FOR SAFETY WALKED TO BATHROOM AND HAD A SMALL BM AND VOIDED. DRESSING TO MIDLINE INCISION CHANGED INCISION WELL APPROXIMATED WITH NO DRAINAGE AND INTACT STERI STRIPS. IV RESTARTED IN RIGHT HAND. INTERMITTENT ABT'S GIVEN ORDERED CONTINUE POC.
[2021-03-17 07:24] VITALS: BP 110/80
--- NOTE | 2021-03-17 09:39 | NUR ---
PT IV IN R HAND IS SLOW FLUSHING. R ARM APPEARS EDEMATOUS. THIS RN SPOKE TO DR BLEVINS FOR POSSIBLE SWITCH TO PO ABX.
[2021-03-17 11:24] VITALS: BP 112/79
--- NOTE | 2021-03-17 14:04 | NUR ---
TINA reviewed chart and spoke with nursing and attending physician. Pt is progressing towards goals for discharge. Weekend discharge anticipated for pt to return to [facility]. TINA faxed updated clinical/therapy info to [facility] for review. Discussed case with aDnn in admissions, who confirms they are able to accept pt back over the weekend. Staff to contact Dann to coordinate discharge. TINA met with pt at bedside to provide update and discuss discharge plan. Pt states that he thinks he is okay with returning to [facility], but he will think about it a little bit more. TINA left voice message for pt's brother, Eran, to provide update and requested him to discuss with pt about going back to [facility] for continued rehab and medical mgmt. Finalized discharge orders/summary will need to be faxed when available. Nursing to call report. Chart will need to be copied. TINA is available to assist as needed with discharge planning. [facility]-- Dann (Admissions): [phone]
[2021-03-17 15:30] VITALS: BP 102/74
[2021-03-17 18:32] LABS: CALCIUM 7.3 mg/dL (8.5-10.1); CREATININE 0.7 mg/dL (0.7-1.3); POTASSIUM 4.4 mmol/L (3.5-5.1)
[2021-03-17 20:58] VITALS: BP 110/70
--- NOTE | 2021-03-18 03:00 | NUR ---
PT IS PROGRESSING TOWARDS PLAN OF CARE DC GOALS. NO C/O PAIN OR DISCOMFORT. VSS AFEBRILE. FALL PRECAUTIONS IN PLACE, CALL LIGHT IS WITHIN REACH.
[2021-03-18 03:33] VITALS: BP 101/73
[2021-03-18 08:22] VITALS: BP 111/80
[2021-03-18 17:22] VITALS: BP 123/78
[2021-03-18 20:12] VITALS: BP 96/76
--- NOTE | 2021-03-18 22:04 | NUR ---
PT ALERT AND ORIENTED X4. VSS AFEBRILE. NO C/O PAIN. NO N/V OR DIARRHEA PRESENTLY. INSTRUCTED PT TO CALL NS IF NEEDED TO GET OOB TO BR. CALL LIGHT IN REACH. BED ALARM IS ON. BED DOWN. NO S/S DISTRESS.
[2021-03-18 23:50] VITALS: BP 98/70
[2021-03-19 04:10] VITALS: BP 101/61
--- NOTE | 2021-03-19 04:28 | NUR ---
PT PROGRESSING TOWARDS D/C GOALS, VSS AFEBRILE THIS AM. NO C/O PAIN. SOA WITH MOVEMENT FROM BSC. PT HAD 1 SMALL BS. BED DOWN CALL LIGHT IN REACH.
--- NOTE | 2021-03-19 05:29 | NUR ---
RECEIVED REPORT AT 0520 FROM [facility] NURSING FOR REMAINDER OF SHIFT. VSS AND WILL MONITOR.
[2021-03-19 07:54] VITALS: BP 102/75
[2021-03-19 15:00] VITALS: BP 99/70
[2021-03-19 19:27] VITALS: BP 116/70
--- NOTE | 2021-03-19 22:26 | NUR ---
PT PROGRESSING TOWARDS D/C GOALS. VSS AFEBRILE. SATS 92% ON 2LNC. LUNGS SOUND DIMINISHED PRESENTLY. SOA NOTED WITH MOVEMENT TO BSC. VOIDS CLEAY YELLOW URINE. ABDOMINAL DRESSING CHANGES ORDERED. SMALL AMT SANGINOUS DRAINAGE NOTED. OTHER DRESSINGS REMAIN CLEAN DRY AND INTACT. BED DOWN . CALL LIGHT IN REACH. BED ALARM IS ON. WILL CONTINUE TO MONITOR PT FOR CHANGES.
[2021-03-20 03:57] VITALS: BP 106/79
--- NOTE | 2021-03-20 05:11 | NUR ---
PT PROGRESSING SLOWLY TOWARDS D/C GOALS. NO C/O PAIN THIS AM. SOA WIH MOVEMENT TO BSC. NO SOA TONIGHT. CO. IV ABX. PRESENTLY UNLABORED ON 4LNC.
[2021-03-20 05:23] LABS: HEMATOCRIT 44.7 % (42.0-52.0); MCH 28.6 pg (26.0-34.0); MCHC 31.4 g/dL (28.0-37.0); MCV 91.2 fL (80.0-100.0); RBC 4.89 mil/uL (4.50-6.00); RDW 15.6 % (10.5-14.5)
[2021-03-20 05:29] LABS: CALCIUM 7.8 mg/dL (8.5-10.1); CREATININE 0.4 mg/dL (0.7-1.3); POTASSIUM 4.6 mmol/L (3.5-5.1)
[2021-03-20 07:55] VITALS: BP 100/70
[2021-03-20 09:19] LABS: ALBUMIN 1.3 g/dL (3.4-5.0); DIRECT BILIRUBIN 0.2 mg/dL (<0.1-0.2); TOTAL BILIRUBIN 0.6 mg/dL (0.2-1.0)
[2021-03-20 11:54] VITALS: BP 95/72
--- NOTE | 2021-03-20 14:39 | NUR ---
TINA reviewed chart and spoke with nursing and attending physician. Pt is on 5L of O2 and IV abx. Pt to have CT scan of abdomen/pelvis. Pt is progressing towards goals for discharge. TINA faxed updated clinical info to [facility] for review. TINA spoke with Dann at [facility] who states they are able to accept pt back. Dann spoke with pt's brother, Eran, this past Saturday, who states that pt has hx bipolar and schizophrenia and was being treated at the [facility]. Pt and Eran have been estranged for several years. Eran is unsure that pt has been following up at the [facility]. TINA met with pt at bedside to discuss discharge plan. Pt sleeping soundly during time of SW visit. TINA left voice message for pt's brother. TINA is following to assist as needed with discharge planning.
[2021-03-20 16:22] VITALS: BP 99/63
[2021-03-20 20:37] VITALS: BP 107/73
[2021-03-21 04:00] VITALS: BP 103/68
[2021-03-21 05:31] LABS: HEMATOCRIT 41.9 % (42.0-52.0); HEMOGLOBIN 13.6 gm/dL (14.0-18.0); MCH 29.6 pg (26.0-34.0); MCHC 32.6 g/dL (28.0-37.0); MCV 90.8 fL (80.0-100.0); RBC 4.61 mil/uL (4.50-6.00); RDW 15.3 % (10.5-14.5); WBC 13.3 thou/uL (4.0-11.0)
[2021-03-21 05:36] LABS: ANION GAP < 0 mmol/L (7-16); BUN 17 mg/dL (7-18); CHLORIDE 106 mmol/L (98-107); CO2 38 mmol/L (21-32); CREATININE 0.5 mg/dL (0.7-1.3); GLUCOSE 105 mg/dL (74-106); POTASSIUM 4.9 mmol/L (3.5-5.1); SODIUM 143 mmol/L (136-145)
[2021-03-21 07:42] VITALS: BP 99/71
--- NOTE | 2021-03-21 08:17 | NUR ---
Pt. stated he slept intermittently during the night. O2 at 5L/NC and he does get short of breath with exertion. Bed alarm on for safety.Voided per urinal. Afebrile.
--- NOTE | 2021-03-21 09:15 | NUR ---
TINA received call from Lexis Rajan with [facility] ([phone]) this morning. Pt has an open case with [facility]. SW returned call and left voice message. TINA is following to assist as needed with discharge planning.
[2021-03-21 11:16] VITALS: BP 118/87
--- NOTE | 2021-03-21 13:02 | NUR ---
CARE ASSUMED THIS AM, PT ALERT AND ORIENTED X4, DENIES CHEST PAIN, NAUSEA AND VOMITTING. PT IS ON 5L OF OXYGEN, SOB WITH EXERTION. USES URINAL AND UP TO BATHROOM WITH ASSIST. ABDOMINAL DRESSING IN PLACE, INTACT, CLEAN AND DRY. FALL PRECAUTIONS IN PLACE. WILL CONTINUE TO MONITOR
--- NOTE | 2021-03-21 14:36 | NUR ---
Nutrition: REC consider appetite stimulant such as megace. Poor oral intake > 2 weeks, severe malnutrition.
[2021-03-21 15:07] VITALS: BP 102/71
[2021-03-21 18:58] VITALS: BP 96/63
[2021-03-22 03:47] VITALS: BP 97/66
[2021-03-22 05:59] LABS: HEMATOCRIT 38.3 % (42.0-52.0); HEMOGLOBIN 12.3 gm/dL (14.0-18.0); MCH 29.1 pg (26.0-34.0); MCHC 32.2 g/dL (28.0-37.0); MCV 90.3 fL (80.0-100.0); RBC 4.24 mil/uL (4.50-6.00); RDW 15.2 % (10.5-14.5)
[2021-03-22 06:27] LABS: CALCIUM 7.6 mg/dL (8.5-10.1); CREATININE 0.3 mg/dL (0.7-1.3); POTASSIUM 4.6 mmol/L (3.5-5.1)
[2021-03-22 07:56] VITALS: BP 120/86
[2021-03-22 11:22] VITALS: BP 112/68
[2021-03-22 11:49] LABS: APTT 26.1 Seconds (24.5-32.8); INR 1.1
--- NOTE | 2021-03-22 11:54 | NUR ---
RORO S/W HILARY WITH [facility] WHO INDCATED THEY ARE ACCEPTING OF PT. HOWEVER, PT'S BEDSIDE RN, BRODY, INFORMED PT THAT DR. SHAH PUT IN AN ORDER FOR A THORACENTESIS. CM NOTIFED DR. PITTS HE WAS PREPARED TO PUT IN D/C ORDERS & HILRAY. CM TO CONT TO FOLLOW.
--- NOTE | 2021-03-22 14:28 | NUR ---
CARE ASSUMED THIS AM, PT ALERT AND ORIENTED X4 DENIES ANY PAIN, NAUSEA AND VOMITTING. ON 4L OF OXYGEN. SOB WITH EXERTION. UP TO BATHROOM WITH 1 ASSIST AND A WALKER. ANTICIPATING FOR DC AFTER THORACENTSIS. HAD A BM TODAY . FLL PRECAUTIONS IN PLACE. DENIES ANY NEEDS. WILL CONTINUE TO MONITOR.
[2021-03-22 15:30] VITALS: BP 108/75
[2021-03-22 19:26] VITALS: BP 123/90
[2021-03-23] VITALS (8 sets, daily range): BP systolic 100–119; BP diastolic 71–89
[2021-03-23 05:43] LABS: HEMATOCRIT 40.5 % (42.0-52.0); HEMOGLOBIN 13.3 gm/dL (14.0-18.0); MCH 29.6 pg (26.0-34.0); MCHC 32.7 g/dL (28.0-37.0); MCV 90.7 fL (80.0-100.0); RBC 4.47 mil/uL (4.50-6.00); RDW 15.8 % (10.5-14.5); WBC 10.3 thou/uL (4.0-11.0)
[2021-03-23 05:51] LABS: CALCIUM 7.8 mg/dL (8.5-10.1); CREATININE 0.4 mg/dL (0.7-1.3); POTASSIUM 4.9 mmol/L (3.5-5.1)
--- NOTE | 2021-03-23 06:35 | NUR ---
Pt. slept fair during the night. Denies need for pain med. Maintaining O2 sat greater than 90% on 4L/NC. He does get short of breath with exertion. Sits up at the edge of the bed to use urinal. Bed alarm on for safety. He calls appropriately to ask for assistance.
--- NOTE | 2021-03-23 15:10 | NUR ---
TINA reviewed chart and spoke with nursing and attending physician. Pt to have thoracentesis today and will be ready to discharge to [facility] tomorrow. Pt had leaking from incision site. Surgeon notified. Pt is on IV abx and 2L of O2. TINA provided updated to [facility] post-acute liaison who states they are able to accept pt when he is medically stable. TINA met with pt at bedside to discuss discharge plan. Lengthy discussion with pt regarding SNF placement. Pt is agreeable with SNF placement. TINA left voice message for Lexis at [facility] to provide update and notify of discharge disposition. TINA is following to assist as needed with discharge planning.
[2021-03-23 15:26] LABS: BF NUCLEATED CELLS 277 /mm3; BF RBC 574 /mm3; CLARITY HAZY; COLOR YELLOW; TOTAL VOLUME 60 mL
[2021-03-23 17:19] LABS: BF NEUTROPHILS 72 %
[2021-03-23 17:20] LABS: BF MACROPHAGE 18 %; SOURCE THORACENTESIS
--- NOTE | 2021-03-23 19:35 | NUR ---
RN ASSUMED PT'S CARE AT 0700AM, PT IS A&OX3 ( PERSON, PLACE AND TIME), PT IS CONTINUING IV ABX, PT IS TOLERATED HIS R SIDE THORACENTESIS ( REMOVAL 1060ML FLUID) TODAY, PT'S VS ARE STABLE, PT DENIES PAIN AND SOB AT DAY SHIFT, RN HAS REPORTED TO HOSPTITAL DR AND SURGICAL DR ABOUT PT'S ABD WOUND LEAKING FLUID, NEW ORDER RECEIVED, APPLY ABD DRESSING , RN HAS REPORTD TO NEXT SHIFT TO KEEP EYE ON PT.
--- NOTE | 2021-03-24 04:10 | NUR ---
Pt. slept well during the night. Maintaining O2 sat in the mid 90's on 2L/NC. Shortness of breath with exertion. Abd dressing saturated with serous dge., new dressing placed. Likes to sit up to use the urinal. Bed alarm on for safety , SCD's on. Denies any pain. Left posterior dressing (puncture site for thoracentesis) intact. Making some progress towards care plan goals.
[2021-03-24 04:29] LABS: CALCIUM 7.7 mg/dL (8.5-10.1); CREATININE 0.4 mg/dL (0.7-1.3); POTASSIUM 4.7 mmol/L (3.5-5.1)
[2021-03-24 05:00] VITALS: BP 112/70
[2021-03-24 05:16] LABS: HEMATOCRIT 38.7 % (42.0-52.0); HEMOGLOBIN 12.5 gm/dL (14.0-18.0); MCH 29.1 pg (26.0-34.0); MCHC 32.3 g/dL (28.0-37.0); MCV 90.1 fL (80.0-100.0); RBC 4.3 mil/uL (4.50-6.00); RDW 15.9 % (10.5-14.5); WBC 9.4 thou/uL (4.0-11.0)
[2021-03-24 07:40] VITALS: BP 107/78
[2021-03-24 08:44] LABS: SOURCE THORACENTESIS
[2021-03-24 11:29] VITALS: BP 103/67
--- NOTE | 2021-03-24 11:34 | NUR ---
TINA reviewed chart and spoke with nursing and attending physician. Pt is not ready for discharge to [facility] today. Pt continues to have leakage around incision site. Surgery to evaluate pt prior to discharge. Pt is on 2L of O2 and IV abx. Pt may be ready for discharge over the weekend. TINA met with pt at bedside to discuss discharge plan. Pt is aware and agreeable with going to [facility]. Pt informed that discharge is anticipated over the Holiday weekend. Pt verbalized understanding. TINA updated [facility] post-acute liaison, who states they are able to accept pt over the weekend. Staff to contact on-call liaison to coordinate discharge. Finalized discharge summary and orders will need to be faxed when available. Margie copy will need to be completed. TINA left voice message for Lexis at [facility] to provide update. TINA is following to assist as needed with discharge planning. [facility]-- Liaison (on-call): [phone]
[2021-03-24 15:40] VITALS: BP 103/62
[2021-03-24 16:07] LABS: BODY FLUID ALBUMIN 0.3 g/dL (Not Estab.); BODY FLUID AMYLASE 39 U/L (()); BODY FLUID GLUCOSE 152 mg/dL (()); BODY FLUID LDH 89 IU/L (()); BODY FLUID PROTEIN 0.7 g/dL (())
--- NOTE | 2021-03-24 18:08 | NUR ---
RN ASSUMED PT'S CARE AT 0700AM, PT IS A&OX4 , PT IS ON O2 2L/MIN/NC, PT 'S SOB HAS IMPROVED, PT HAD R SIDE THORACENTENSIS DONE AT 03/23/21, PT GETS UP TO USE BSC WITH ASSIT, RN HAS CALLED SURGICAL DR TO EVALUATE PT'S ABD WOUND LEAKING FLUID, NO NEW ORDER, CONTINUING DRESSING CHANGE , PT DENIES PAIN AND SOB BY THIS TIME.
[2021-03-24 19:37] VITALS: BP 95/61
[2021-03-25 03:48] VITALS: BP 101/73
--- NOTE | 2021-03-25 05:45 | NUR ---
Pt. stated he slept fair and when he woke up he requested for ensure.Maintaining O2 sat in the mid 90's on 2L/NC.He does get short of breath with exertion. He sits up at the edge of the bed to use urinal. He reported he had bm yesterday. Bed alarm on and SCD's in place. Dressing on left hand IV changed. Abdominal dressing intact.
[2021-03-25 07:52] VITALS: BP 102/68
[2021-03-25 11:13] VITALS: BP 109/65
[2021-03-25] MEDS ORDERED: LEVOFLOXACIN500 MG PO (12:04)
[2021-03-25] MEDS ORDERED: FLAGYL500 M1 PO (12:05)
[2021-03-25] MEDS ORDERED: ACID CONTROLLER10 MG PO (12:06)
--- NOTE | 2021-03-25 16:47 | NUR ---
IV D/C. PT BELONGING PACKED AND WITH PT. PT CHANGE INTO HIS PERSONAL CLOTHES. CHART COPY GIVEN TO TRANSPORTATION. PT ON 3L OF OXYGEN PER BASELINE. CALLED [facility] AND REPORT GIVEN TO MALINI DRIVER. DENIES ANY QUESTIONS.
--- NOTE | 2021-03-29 17:06 | PATH ---
[facility] [address] [place] [address] PATHOLOGY RPT PROCEDURE Name: COLIN HYDE Room #: 356-P DIS IN M.R.#: [id number] Admission: 03/13/21 Date of : 53 Discharge: 03/25/21 Report #: [id number] Path Case #: [id number] Note [facility] Accession Number: [id number] TESTS RESULT FLAG UNITS REF RANGE LAB Clinician Provided Cytology Information No. of containers..01 Other (Miscellaneous) Source: PLEURAL FLUID DIAGNOSIS: 02 PLEURAL FLUID NEGATIVE FOR MALIGNANT EPITHELIAL CELLS. REACTIVE MESOTHELIAL CELLS ARE PRESENT. THIS INTERPRETATION INCLUDES EVALUATION OF A CELL BLOCK. Pathologist ICD10: 02 J90 Signed out by: 02 Lakshmi Orosco MD, Pathologist NPI- [id number] Performed by: 01 [employer] [facility] ([facility]) Gross description: 01 15ML, CLEAR LIT LYNDSAYISISNolan, 1 TP 1 CB /FEI 03/28/20212013 Local FLAG LEGEND: L-Low Normal,H-High Normal,LL-Alert Low,HH-Alert High <-Panic Low,>-Panic High,A-Abnormal,AA-Critical Abnormal Performed at: [address] [place] [address] Frederic Muñoz MD, [address] [address] Lakshmi Orosco MD, Specimen Comment: A courtesy copy of this report has been sent to [phone] Specimen Comment: Report sent to Performed at: [address], [place], [place] [address] MD Frederic Muñoz MD Phone: [phone]
== END 2021-03-25 16:27 | DRG 853 ==
LOC: ER 18:39 → EROBS 22:12 → 3W 22:12 → EROBS 22:13 → 3W 03-14 00:33
PROVIDERS: Emergency Medicine; Hospitalist; Internal Medicine Pulmonary Disease; Nurse Practitioner; Specialist; ADMIT Internal Medicine; ATTEND Internal Medicine
DX: A41.9 Sepsis, unspecified organism (principal); K65.8 Other peritonitis; K63.1 Perforation of intestine (nontraumatic); E43 Unspecified severe protein-calorie malnutrition; I50.33 Acute on chronic diastolic (congestive) heart failure; J96.21 Acute and chronic respiratory failure with hypoxia; G93.40 Encephalopathy, unspecified; R18.8 Other ascites; I42.9 Cardiomyopathy, unspecified; E87.1 Hypo-osmolality and hyponatremia; K52.9 Noninfective gastroenteritis and colitis, unspecified; I10 Essential (primary) hypertension; E78.5 Hyperlipidemia, unspecified; J43.9 Emphysema, unspecified; R65.20 Severe sepsis without septic shock; I27.20 Pulmonary hypertension, unspecified; I25.10 Atherosclerotic heart disease of native coronary artery without angina pectoris; R53.81 Other malaise; R41.0 Disorientation, unspecified; Z79.82 Long term (current) use of aspirin; I25.2 Old myocardial infarction; Z88.2 Allergy status to sulfonamides; Z86.73 Personal history of transient ischemic attack (TIA), and cerebral infarction without residual deficits; Z87.891 Personal history of nicotine dependence; Z79.899 Other long term (current) drug therapy; Z20.822 Contact with and (suspected) exposure to COVID-19
CPT/HCPCS: 10879; 50010; 50101; 50411; 50455; 50555; 52265; 53307; 53314; 56525; 56526; 57103; 58574; 62110; 62900; 70005

== ENCOUNTER 2021-05-25 17:34 | Emergency (ER) | payer OTHER ==
[~2021-05-25] VITALS: Ht 172.7 cm; Wt 49.9 kg
[~2021-05-25 17:34] MED LIST changes: +ACID CONTROLLER10 MG PO; +ACIDOPHILUS LA1 EAC1 PO; +FLAGYL500 M1 PO; +LEVOFLOXACIN500 MG PO
[2021-05-25 18:34] LABS: BASOPHILS 0.4 % (0.0-2.0); HEMATOCRIT 42.4 % (42.0-52.0); HEMOGLOBIN 13.8 gm/dL (14.0-18.0); LYMPHOCYTES 4.2 % (24.0-44.0); MCH 29.5 pg (26.0-34.0); MCHC 32.6 g/dL (28.0-37.0); MCV 90.5 fL (80.0-100.0); MONOCYTES 11.1 % (1.0-8.0); PLATELET COUNT 168 thou/uL (150-400); POLYS 84.3 % (36.0-66.0); RBC 4.69 mil/uL (4.50-6.00); RDW 15.3 % (10.5-14.5); WBC 15.4 thou/uL (4.0-11.0)
[2021-05-25 18:39] LABS: ANION GAP 4 mmol/L (7-16); BUN 13 mg/dL (7-18); CALCIUM 8.8 mg/dL (8.5-10.1); CHLORIDE 101 mmol/L (98-107); CO2 32 mmol/L (21-32); CREATININE 0.7 mg/dL (0.7-1.3); GLUCOSE 108 mg/dL (74-106); SODIUM 137 mmol/L (136-145)
[2021-05-25 18:49] LABS: ALBUMIN 3.2 g/dL (3.4-5.0); SGOT 30 U/L (15-37); SGPT 36 U/L (16-63); TOTAL PROTEIN 6.7 g/dL (6.4-8.2); TROPONIN-I <0.06 ng/mL (<0.06)
[2021-05-25 20:43] LABS: URINE BILIRUBIN 1+ (Negative); URINE BLOOD TRACE (Negative); URINE CLARITY CLEAR; URINE COLOR YELLOW; URINE GLUCOSE-RANDOM* NEGATIVE (Negative); URINE KETONES NEGATIVE (Negative); URINE LEUKOCYTES-REFLEX NEGATIVE (Negative); URINE NITRITE-REFLEX NEGATIVE (Negative); URINE PROTEIN (DIPSTICK) 2+ (Negative); URINE SPECIFIC GRAVITY 1.025 (1.005-1.035); URINE UROBILINOGEN 0.2 E.U./dl (0.2-1.0)
[2021-05-25] MEDS ORDERED: VITAMIN D210 MCG PO ×2 (20:44→20:46)
[2021-05-25 20:47] LABS: ICTOTEST (BILI CONFIRMATORY) Positive (Negative)
[2021-05-25] MEDS ORDERED: BUDESONIDE0.5 MG/2 M INH (20:47)
[2021-05-25] MEDS ORDERED: BUSPIRONE HCL5 MG PO (20:48)
[2021-05-25] MEDS ORDERED: LIDODERM1 EACH TOP (20:49)
[2021-05-25 20:50] LABS: CASTS None Seen /LPF (None Seen); MUCUS >6 Heavy strn/LPF (None Seen); SQUAMOUS 0-3 Few /LPF (0-3)
[2021-05-25] MEDS ORDERED: ACETAMINOPHEN650 M5 PO (20:50)
[2021-05-25 20:51] LABS: URINE RBC 1-2 Rare /HPF (NONE SEEN); URINE WBC-REFLEX 0-5 Rare /HPF (0-5)
[2021-05-25] MEDS ORDERED: OYSTER SHELL C500 MG PO (20:51)
[2021-05-25 20:53] LABS: BACTERIA-REFLEX 1-9 Few /HPF (None Seen); CRYSTALS None Seen /LPF (None Seen)
[2021-05-25] MEDS ORDERED: LEVAQUIN 500 M500 MG PO (21:35)
[2021-05-25 22:17] VITALS: BP 112/77
--- NOTE | 2021-05-26 07:18 | EKG ---
[place] [address] [employer] [facility] [place] [address] ELECTROCARDIOGRAM REPORT Name: COLIN HYDE Room #: DEP Sage#: [id number] Admission: 05/25/21 Attend Phys: Discharge: 05/25/21 Date of : 53 Report #: [id number] [facility] ED Test Date: 2021-05-25 Test Time: 18:05:01 Pat Name: COLIN HYDE Department: Room: Gender: M Director Search: SARY : 1955 Requested By: Turner Dodd Order Number: [id number] MD: Rodney Rivesr Measurements Intervals [place] Rate: 105 P: 84 MS: 140 QRS: 133 QRSD: 136 T: 19 QT: 367 QTc: 486 Interpretive Statements Sinus tachycardia Biatrial enlargement Right bundle branch block Anteroseptal infarct, age indeterminate Compared to ECG 03/13/2021 19:44:17 Myocardial infarct finding now present Left posterior fascicular block no longer present Electronically Signed On 05-26-2021 7:18:03 CDT by Rodney Rivers [email or web address] <ELECTRONICALLY SIGNED> By: Rodney Rivers MD, [facility] 05/26/21717 180 180 Rodney Rivers MD, [facility] /EPI
== END 2021-05-25 23:30 ==
LOC: ER 17:34
PROVIDERS: Student in an Organized Health Care Education/Training Program
DX: N39.0 Urinary tract infection, site not specified (principal); J18.9 Pneumonia, unspecified organism; J44.9 Chronic obstructive pulmonary disease, unspecified; I11.0 Hypertensive heart disease with heart failure; I50.9 Heart failure, unspecified; E78.5 Hyperlipidemia, unspecified; F03.90 Unspecified dementia, unspecified severity, without behavioral disturbance, psychotic disturbance, mood disturbance, and anxiety; F17.210 Nicotine dependence, cigarettes, uncomplicated; Z79.2 Long term (current) use of antibiotics; Z79.82 Long term (current) use of aspirin; Z79.899 Other long term (current) drug therapy; Z88.1 Allergy status to other antibiotic agents; Z20.822 Contact with and (suspected) exposure to COVID-19